=== PATIENT | male | born 1960 | race African-American/Black ===

== ENCOUNTER 2016-08-11 08:00 | Emergency (ER) | payer OTHER ==
[~2016-08-11] VITALS: Ht 185.4 cm; Wt 63.5 kg
[~2016-08-11 08:00] MED LIST: ALBU1AER INH; AMLO10 PO; BYST10TA2 PO; CHOL1CAP6 PO; MEDR4PAK PO; MORP1CAP63 PO; ROBA750T PO
[2016-08-11 08:02] VITALS: BP 189/86; PULSE 78; RESP 20; TEMP 97.9; O2SAT 99
[2016-08-11 09:04] LABS: BASOPHIL # 0.1 TH/MM3 (0-0.2); BASOPHIL % 0.9 % (0.0-2.0); EOSINOPHIL # 0.1 TH/MM3 (0-0.4); EOSINOPHIL % 0.9 % (0.0-4.0); HEMATOCRIT 37.1 % (39.0-51.0); HEMO FLAGS DIFF FINAL; LYMPH % 25.4 % (9.0-44.0); LYMPHOCYTE # 1.5 TH/MM3 (1.0-4.8); MEAN CELL VOLUME 93.8 FL (80.0-100.0); MEAN CORPUSCULAR HEMOGLOBIN 31.2 PG (27.0-34.0); MEAN CORPUSCULAR HGB CONC 33.2 % (32.0-36.0); MONO % 6.6 % (0.0-8.0); NEUT % 66.2 % (16.0-70.0); PLATELET COUNT 159 TH/MM3 (150-450); RED BLOOD COUNT 3.95 MIL/MM3 (4.50-5.90); RED CELL DISTRIBUTION WIDTH 14.1 % (11.6-17.2)
[2016-08-11 09:14] VITALS: BP 177/79; PULSE 74; RESP 18; O2SAT 100
[2016-08-11] MEDS ORDERED: AMLO10TA2 PO (09:14)
[2016-08-11] MEDS ORDERED: ALBU0.63 NEB (09:14)
[2016-08-11] MEDS ORDERED: ALBUAER3 INH (09:14)
[2016-08-11] MEDS ORDERED: CHOL100025 CHEW (09:14)
[2016-08-11] MEDS ORDERED: BYST10TA2 PO (09:14)
[2016-08-11 09:19] LABS: BICARBONATE 23.9 MEQ/L (21.0-32.0); POTASSIUM 4.7 MEQ/L (3.5-5.1)
[2016-08-11] MEDS ORDERED: ASPIRIN 81 MG CHEW TAB PO ONE (09:30)
[2016-08-11] MEDS ORDERED: NITROGLYCERIN 2% OINT 1 GM PACKET TOP ONE (09:45)
--- NOTE | 2016-08-11 09:47 | PD ---
HPI Chief Complaint: Respiratory Distress Time Seen by Provider: 09:15 Travel History International Travel<30 days: No Contact w/Intl Traveler<30days: No Traveled to known affect area: No History of Present Illness HPI Patient is a 56-year-old male with chief complaint of a sided chest pressure. He states present for 3 days. It is constant. When he takes a deep breath or coughs it is sharp and does radiate to the left shoulder blade. He has history of COPD and pneumonia and thinks he is having an exacerbation and possibly pneumonia. He denies any acute worsening of his cough or any sputum production. He denies any acute dyspnea at rest but states when he exerts he does have some mild worsening dyspnea. He has used inhalers with no relief. He denies any fever or ENT/URI symptoms.The pain is not ripping or tearing in nature and he denies dizziness/syncope. He denies history of DVT, recent illnesses travel, recent surgery or immobility. He continues to smoke. Does not take aspirin or anticoagulants. He states he had a cardiac stress test at [facility] 2 months prior which was normal. [facility] Past Medical History Asthma: Yes Cancer: No Cardiovascular Problems: Yes (HTN, CHEST PAIN ) COPD: Yes Coronary Artery Disease: Yes Diminished Hearing: No Genitourinary: Yes (POLYCYSTIC KIDNEY DISEASE) Hepatitis: No Hiatal Hernia: No Herniated Disk: Yes Hypertension: Yes Medical other: No (DJD NECK AND LOWER BACK) Musculoskeletal: Yes (HERNIATED DISCS NECK & BACK) Respiratory: Yes (COPD) Immunizations Current: Yes Renal Failure: Yes Past Surgical History Thoracic Surgery: Yes (SPONTANEOUS PNEUMOTHORAX AFTER WEIGHT LIFTING 2002, LEFT LUNG CHEST TUBE) Other Surgery: Yes (PNEUMOTHORAX/ LUNG BIOPSY) Social History Alcohol Use: Yes ("RARE") Tobacco Use: Yes (3 CIGARS DAILY) Substance Use: No Allergies-Medications (Allergen,Severity, Reaction): Coded Allergies: Contrast Media (Unverified Allergy, Severe, 08/11/16) R/T KIDNEY DISEASE Darvocet-N 100 (Verified Allergy, Severe, 08/11/16) "SICK TO STOMACH AND ABD CRAMPING" Lisinopril (Verified Allergy, Severe, TONGUE SWELLING, 08/11/16) Bactrim (Verified Allergy, Intermediate, 08/11/16) Reported Meds & Prescriptions Reported Meds & Active Scripts Active Azithromycin 250 Mg Tab 250 Mg PO DIRECTED Take 2 tabs (500 mg) on day 1 then 1 tab daily x 4 days. Reported Albuterol Neb (Albuterol Sulfate) 0.63 Mg/3 Ml Neb 0.63 Mg NEB QID NEB PRN Vitamin D3 (Cholecalciferol) 1,000 Unit Chew 1,000 Units CHEW DAILY Bystolic (Nebivolol) 10 Mg Tab 10 Mg PO DAILY Amlodipine (Amlodipine Besylate) 10 Mg Tab 10 Mg PO DAILY Proair Hfa 8.5 GM Inh (Albuterol Sulfate) 90 Mcg/Act Aer 1 Puff INH BID PRN 108 mcg/actuation Review of Systems Except as stated in HPI: all other systems reviewed are Neg Physical Exam Narrative GENERAL: Well-developed and well-nourished adult male in no acute distress. SKIN: Warm and dry. Good turgor without tenting. HEAD: Normocephalic and atraumatic. EYES: PERRL bilaterally, 5mm. EOMI bilaterally. No injection or icterus present. No proptosis. Lids without edema or erythema. ENT: Buccal mucosa pink and moist. Oropharynx free of erythema, tonsillar hypertrophy, masses, swelling, asymmetry and exudates. Uvula midline and airway patent. NECK: Supple, no midline tenderness, crepitus or step-offs. Trachea midline, no JVD. No cervical or facial lymphadenopathy. CARDIOVASCULAR: Regular rate and rhythm without murmurs, rubs, clicks or gallops. Radial and posterior tibial pulses 2+ bilaterally. No pedal edema. Negative bilateral Homans sign. RESPIRATORY: Clear to auscultation bilaterally with symmetrical rise and fall, no distress or use of accessory muscles. GASTROINTESTINAL: Non-tender, non-distended. Normal bowel sounds all 4 quadrants. No masses or organomegaly present. MUSCULOSKELETAL: Patient freely moving all four extremities spontaneously. Extremities without clubbing, cyanosis, or edema. No obvious deformities. NEUROLOGIC: CN II-XII grossly intact. Awake and alert. Motor grossly within normal limits. Normal speech. PSYCHIATRIC: Appropriate mood and affect; insight and judgment normal. Data Data Last Documented VS Vital Signs Date Time Temp Pulse Resp B/P Pulse Ox O2 Delivery O2 Flow Rate FiO2 08/11/16 09:14 100 Room Air 08/11/16 09:14 74 18 177/79 08/11/16 08:02 97.9 Orders Complete Blood Count With Diff (08/11/16 08:23) Basic Metabolic Panel (Bmp) (08/11/16 08:23) Chest, Pa & Lat (08/11/16 08:23) Blood Culture (08/11/16 08:23) Iv Access Insert/Monitor (08/11/16 08:23) Ecg Monitoring (08/11/16 08:23) Oxygen Administration (08/11/16 08:23) Oximetry (08/11/16 08:23) Electrocardiogram (08/11/16 08:23) Ckmb (Isoenzyme) Profile (08/11/16 09:24) Magnesium (Mg) (08/11/16 09:24) Prothrombin Time / Inr (Pt) (08/11/16 09:24) Act Partial Throm Time (Ptt) (08/11/16 09:24) Troponin I (08/11/16 09:24) Bilateral Bp Monitoring (08/11/16 09:24) Aspirin Chew (Aspirin Chew) (08/11/16 09:30) Nitroglycerin 2% Oint (Nitroglycerin 2% (08/11/16 09:45) Ct Thorax/ Chest Wo Iv Contras (08/11/16 ) Ceftriaxone Inj (Rocephin Inj) (08/11/16 10:30) Azithromycin Inj (Zithromax Inj) (08/11/16 10:30) CKMB (08/11/16 08:44) CKMB% (08/11/16 08:44) Labs Laboratory Tests Test 08/11/16 08/11/16 08:44 09:23 White Blood Count 6.0 TH/MM3 Red Blood Count 3.95 MIL/MM3 Hemoglobin 12.3 GM/DL Hematocrit 37.1 % Mean Corpuscular Volume 93.8 FL Mean Corpuscular Hemoglobin 31.2 PG Mean Corpuscular Hemoglobin 33.2 % Concent Red Cell Distribution Width 14.1 % Platelet Count 159 TH/MM3 Mean Platelet Volume 7.0 FL Neutrophils (%) (Auto) 66.2 % Lymphocytes (%) (Auto) 25.4 % Monocytes (%) (Auto) 6.6 % Eosinophils (%) (Auto) 0.9 % Basophils (%) (Auto) 0.9 % Neutrophils # (Auto) 4.0 TH/MM3 Lymphocytes # (Auto) 1.5 TH/MM3 Monocytes # (Auto) 0.4 TH/MM3 Eosinophils # (Auto) 0.1 TH/MM3 Basophils # (Auto) 0.1 TH/MM3 CBC Comment DIFF FINAL Differential Comment Sodium Level 145 MEQ/L Potassium Level 4.7 MEQ/L Chloride Level 114 MEQ/L Carbon Dioxide Level 23.9 MEQ/L Anion Gap 7 MEQ/L Blood Urea Nitrogen 25 MG/DL Creatinine 2.91 MG/DL Estimat Glomerular Filtration 27 ML/MIN Rate Random Glucose 91 MG/DL Calcium Level 8.4 MG/DL Magnesium Level 1.9 MG/DL Total Creatine Kinase 130 U/L Creatine Kinase MB 1.4 NG/ML Troponin I 0.06 NG/ML Prothrombin Time 10.0 SEC Prothromb Time International 0.9 RATIO Ratio Activated Partial 28.1 SEC Thromboplast Time MDM Medical Decision Making Medical Screen Exam Complete: Yes Emergency Medical Condition: Yes Interpretation(s) Last [address] 08/11/16 0000 Signed Impressions: Service Date/Time: Thursday, August 11, 2016 10:14 - CONCLUSION: 1. There is an area of masslike consolidation in the anterior aspect of the left upper lobe measuring 5.9 x 3.0 cm. This has slightly decreased in size compared to a previous examination dated 06/01/12. The patient has undergone previous biopsy of this area. 2. There are 3 new lesions within the right lung apex. These are indeterminate in appearance by CT. PET imaging may be of benefit for further assessment and to exclude malignancy. 3. Extensive emphysematous changes throughout the lung apices and upper lobes. 4. Enlargement of both kidneys with simple cysts consistent with polycystic kidney disease. Carlos Rayo MD Laboratory Tests Test 08/11/16 08:44 Red Blood Count 3.95 MIL/MM3 Hemoglobin 12.3 GM/DL Hematocrit 37.1 % Chloride Level 114 MEQ/L Blood Urea Nitrogen 25 MG/DL Creatinine 2.91 MG/DL Estimat Glomerular Filtration 27 ML/MIN Rate Calcium Level 8.4 MG/DL Troponin I 0.06 NG/ML EKG: NSR, rate of 64. Left axis deviation. Patient has T wave inversion in leads 23 and aVF and V6. Differential Diagnosis ACS versus pericarditis versus pneumonia versus COPD exacerbation versus PE versus aortic aneurysm Narrative Course Patient is a 56-year-old male with history of COPD presenting with left sided chest discomfort and worsening dyspnea consistent with previous episodes of pneumonia. Present for 3 days. It is not exertional. Cardiac stress test 2 months prior which was normal per the patient. EKG shows inversion of T waves in the inferior lateral leads however which is new compared to last EKG but has been present on previous EKGs as well. She was given aspirin initially 2 mg and 1 inch of nitroglycerin paste. This did not alter his symptoms. Chest x- ray shows some opacities in the left upper lung tran. CT scan shows a large masslike area of consolidation in the left upper lobe. This is present on previous CTs and does appear slightly smaller. There is concern for infiltrate in this area of reviewing Dr. Herbert and the patient's symptoms and history. Also some new nodules in the right apex. The seizures chronic anemia, H&H 12.5/ 37.1. Metabolic panel shows BUN 25, creatinine 2.9 which is also chronic. Calcium 8.4. Patient's troponin is 0.06, CK 130, CK-MB 1.4. Reviewed with Dr. Herbert who believes the troponin is elevated due to the renal function and as the history is not overly concerning for cardiac etiology and the CT shows an area of consolidation around previous mass will treat for pneumonia. Patient was given Ceftriaxone and Azithromycin here. Will d/c with the rest of [facility] and have patient follow up with his addiction therapist tomorrow. I discussed this patient with Dr. Herbert throughout their care. He has also evaluated this patient , helped formulate, and agrees with the assessment and plan.See discharge paperwork for further instructions. The plan was discussed with the patient who acknowledged their understanding and agreement. Reinforced the follow-up with primary care is critically important. Patient instructed on emergent conditions that should prompt return to ED. Diagnosis Primary Impression: Pneumonia Qualified Code: J18.1 - Pneumonia of left upper lobe due to infectious organism Additional Impression: Pulmonary nodule Patient Instructions: Community Acquired Pneumonia (ED), General Instructions Additional Instructions: Take medication as prescribed Drink lots of fluids stable hydrated Continue using your home inhalers as prescribed Follow up with your addiction therapist tomorrow Return to the ED for any acute worsening of symptoms Med/Other Pt SpecificInfo: Prescription(s) given Scripts Azithromycin 250 Mg [id number] Mg PO DIRECTED #6 TAB Take 2 tabs (500 mg) on day 1 then 1 tab daily x 4 days. Prov:Jovany Herbert MD 08/11/16 Disposition: 01 DISCHARGE HOME Condition: Stable Guy Perez III Aug 11, 2016 09:47
[2016-08-11 10:06] LABS: APTT (PATIENT) 28.1 SEC (24.3-30.1); INTERNATIONAL NORMALIZED RATIO 0.9 RATIO
[2016-08-11] MEDS ORDERED: cefTRIAXone INJ 1,000 MG in SODIUM CHLORIDE 0.9% INJ 100 ML IV ONE (10:30)
[2016-08-11] MEDS ORDERED: AZITHROMYCIN INJ 500 MG in SODIUM CHLOR 0.9% 250 ML INJ 250 ML IV ONE (10:30)
--- NOTE | 2016-08-11 10:32 | RADRPT ---
EXAM DATE/TIME: 08/11/2016 10:14 [facility] COMPARISON: CT NEEDLE BIOPSY LUNG, LEFT, June 01, 2012, 8:34. CT ABDOMEN & PELVIS W/O CONTRAST, March, 19:59. INDICATIONS : Left chest pain; evaluate for pneumonia. RADIATION DOSE: 5.1 CTDIvol (mGy) MEDICAL HISTORY : Hypertension. Chronic obstructive pulmonary disease. Polycystic kidney disease. SURGICAL HISTORY : None. ENCOUNTER: Initial ACUITY: 1 day PAIN SCALE: 5/10 LOCATION: Left chest TECHNIQUE: Volumetric scanning of the chest was performed. Using automated exposure control and adjustment of t he mA and/or kV according to patient size, radiation dose was kept as low as reasonably achievable to obtain optimal diagnostic quality images. FINDINGS: Examination of the pulmonary parenchyma demonstrates advanced emphysematous changes. There are large emphysematous bulla throughout both upper lobes. There is relative sparing of the lower lobe. There i s a large area of consolidation with partial cavitation in the lateral margin of the left upper lobe. This appears slightly improved when compared back to a previous dated 06/01/12. The patient has unde rgone previous CT guided biopsy of this area. There are 3 new nodules within the right lung apex. The most superior lesion measures 1.1 x 2.0 CM. Lesion in the posterior aspect of the right upper lobe m easures 1.2 x 0.8 CM the more inferior lesion measures 1.5 x 0.9 cm. The heart is normal in size. There is no significant hilar or mediastinal adenopathy. Imaging through the upper abdomen demonstrates numerous cysts within the kidneys suggesting polycysti c kidney disease. CONCLUSION: 1. There is an area of masslike consolidation in the anterior aspect of the left upper lobe measuring 5.9 x 3.0 cm. This has slightly decreased in size compared to a previous examination dated 06/01/12. The patient has undergone previous biopsy of this area. 2. There are 3 new lesions within the right lung apex. These are indeterminate in appearance by CT. P ET imaging may be of benefit for further assessment and to exclude malignancy. 3. Extensive emphysematous changes throughout the lung apices and upper lobes. 4. Enlargement of both kidneys with simple cysts consistent with polycystic kidney disease. Carlos Rayo MD on August 11, 2016 at 10:25 Board Certified Radiologist. This report was verified electronically.
[2016-08-11 11:14] LABS: CREATINE KINASE 130 U/L (39-308); MAGNESIUM 1.9 MG/DL (1.5-2.5)
--- NOTE | 2016-08-11 11:16 | RADRPT ---
EXAM DATE/TIME: 08/11/2016 08:51 [facility] COMPARISON: CHEST PA & LAT, November 29, 2014, 22:47. INDICATIONS: Short of breath and chest pain. MEDICAL HISTORY: Chronic obstructive pulmonary disease. Spontaneous pnx SURGICAL HISTORY: Chest tube ENCOUNTER: Initial ACUITY: 3 days PAIN SCORE: 8/10 LOCATION: Left anterior and posterior FINDINGS: The lungs are markedly hyperinflated. Minimal air space disease is seen in the right upper lobe and the left perihilar region with blebs evident. There is no pneumothorax. Heart and pulmonary vascula rity are normal. CONCLUSION: Marked hyperinflation. Apical air space disease is seen in the right upper lobe and in the left mid lung. Process in the left mid lung has progressed slightly in the interval. Barrett Rayo MD FACR on August 11, 2016 at 10:52 Board Certified Radiologist. This report was verified electronically.
[2016-08-11 11:26] LABS: CKMB 1.4 NG/ML (0.5-3.6)
[2016-08-11] MEDS ORDERED: AZIT250T3 PO ×2 (11:26→11:49)
--- NOTE | 2016-08-11 12:25 | PD ---
Data Data Last Documented VS Vital Signs Date Time Temp Pulse Resp B/P Pulse Ox O2 Delivery O2 Flow Rate FiO2 08/11/16 09:14 100 Room Air 08/11/16 09:14 74 18 177/79 08/11/16 08:02 97.9 Orders Complete Blood Count With Diff (08/11/16 08:23) Basic Metabolic Panel (Bmp) (08/11/16 08:23) Chest, Pa & Lat (08/11/16 08:23) Blood Culture (08/11/16 08:23) Iv Access Insert/Monitor (08/11/16 08:23) Ecg Monitoring (08/11/16 08:23) Oxygen Administration (08/11/16 08:23) Oximetry (08/11/16 08:23) Electrocardiogram (08/11/16 08:23) Ckmb (Isoenzyme) Profile (08/11/16 09:24) Magnesium (Mg) (08/11/16 09:24) Prothrombin Time / Inr (Pt) (08/11/16 09:24) Act Partial Throm Time (Ptt) (08/11/16 09:24) Troponin I (08/11/16 09:24) Bilateral Bp Monitoring (08/11/16 09:24) Aspirin Chew (Aspirin Chew) (08/11/16 09:30) Nitroglycerin 2% Oint (Nitroglycerin 2% (08/11/16 09:45) Ct Thorax/ Chest Wo Iv Contras (08/11/16 ) Ceftriaxone Inj (Rocephin Inj) (08/11/16 10:30) Azithromycin Inj (Zithromax Inj) (08/11/16 10:30) CKMB (08/11/16 08:44) CKMB% (08/11/16 08:44) Labs Laboratory Tests Test 08/11/16 08/11/16 08:44 09:23 White Blood Count 6.0 TH/MM3 Red Blood Count 3.95 MIL/MM3 Hemoglobin 12.3 GM/DL Hematocrit 37.1 % Mean Corpuscular Volume 93.8 FL Mean Corpuscular Hemoglobin 31.2 PG Mean Corpuscular Hemoglobin 33.2 % Concent Red Cell Distribution Width 14.1 % Platelet Count 159 TH/MM3 Mean Platelet Volume 7.0 FL Neutrophils (%) (Auto) 66.2 % Lymphocytes (%) (Auto) 25.4 % Monocytes (%) (Auto) 6.6 % Eosinophils (%) (Auto) 0.9 % Basophils (%) (Auto) 0.9 % Neutrophils # (Auto) 4.0 TH/MM3 Lymphocytes # (Auto) 1.5 TH/MM3 Monocytes # (Auto) 0.4 TH/MM3 Eosinophils # (Auto) 0.1 TH/MM3 Basophils # (Auto) 0.1 TH/MM3 CBC Comment DIFF FINAL Differential Comment Sodium Level 145 MEQ/L Potassium Level 4.7 MEQ/L Chloride Level 114 MEQ/L Carbon Dioxide Level 23.9 MEQ/L Anion Gap 7 MEQ/L Blood Urea Nitrogen 25 MG/DL Creatinine 2.91 MG/DL Estimat Glomerular Filtration 27 ML/MIN Rate Random Glucose 91 MG/DL Calcium Level 8.4 MG/DL Magnesium Level 1.9 MG/DL Total Creatine Kinase 130 U/L Creatine Kinase MB 1.4 NG/ML Troponin I 0.06 NG/ML Prothrombin Time 10.0 SEC Prothromb Time International 0.9 RATIO Ratio Activated Partial 28.1 SEC Thromboplast Time MDM Supervised Visit with [facility]: Yes Narrative Course The history, exam, and medical decision-making in the associated mid-level provider note were completed with my assistance. I reviewed and agree with the findings presented. I attest that I had a [id number] encounter with the patient on the same day, and personally performed and documented my assessment and findings in the medical record. *My assessment and Findings: Is a 56-year-old male presents emergency department reporting left-sided chest pain. Patient has extensive medical history including COPD, and previous pneumothoraces. He's had a chest tube on the left side. Evaluation shows abnormal density in the left long. This was evaluated with CT scan which showed masslike consolidation. This is been previously biopsied and showed what appeared to be inflammatory changes. This is clearly on the oral to the long and likely explains the patient's pleuritic chest pain. He could have some abnormal scarring there from his previous chest tube, other may be new infection in that area. Recommend treatment with antibiotics, pain medicines, and follow-up with the primary care physician. I don't think the patient has a coronary syndrome. I don't think that he has PE. Diagnosis Primary Impression: Pneumonia Qualified Code: J18.1 - Pneumonia of left upper lobe due to infectious organism Additional Impression: Pulmonary nodule Patient Instructions: General Instructions, Community Acquired Pneumonia (ED) Departure Forms: Tests/Procedures Additional Instruction: Take medication as prescribed Drink lots of fluids stable hydrated Continue using your home inhalers as prescribed Follow up with your computer networker tomorrow Return to the ED for any acute worsening of symptoms Scripts Azithromycin 250 Mg [id number] Mg PO DAILY #4 TAB To finish the course started here in the ED Prov:Jovany Herbert MD 08/11/16 Disposition: 01 DISCHARGE HOME Condition: Stable Jovany Herbert MD Aug 11, 2016 12:25
--- NOTE | 2016-08-11 18:58 | EKG ---
Date Performed: 08/11/2016 Time Performed: 08:31:46 PTAGE: 56 years EKG: Sinus rhythm LEFT ANTERIOR FASCICULAR BLOCK SEPTAL MYOCARDIAL INFARCTION MODERATE T-WAVE ABNORMALITY, CONSIDER IN FERIOR ISCHEMIA When compared to prior tracing anteroseptal infarct changes continue. ABNORMAL ECG PREVIOUS TRACING : 12/29/2015 02.33 DOCTOR: Karina Mancia Interpretating Date/Time 08/11/2016 18:57:52
== END 2016-08-11 13:24 | disposition home or self-care (01) ==
LOC: NEPA 08:00
DX: J18.1 Lobar pneumonia, unspecified organism (principal); J44.9 Chronic obstructive pulmonary disease, unspecified; I10 Essential (primary) hypertension; J45.909 Unspecified asthma, uncomplicated; I25.10 Atherosclerotic heart disease of native coronary artery without angina pectoris; F17.290 Nicotine dependence, other tobacco product, uncomplicated; R91.1 Solitary pulmonary nodule
CPT/HCPCS: 71020; 71250; 80048; 82550; 82552; 83735; 84484; 85025; 85610; 85730; 87040; 93005; 96365; 96375; 99284; J0456; J0696; J7050

== ENCOUNTER 2017-01-04 10:40 | Emergency (ER) | payer OTHER ==
[~2017-01-04] VITALS: Ht 185.4 cm; Wt 62.0 kg
[~2017-01-04 10:40] MED LIST changes: +ALBU0.63 NEB; -ALBU1AER INH; +ALBUAER3 INH; -AMLO10 PO; +AMLO10TA2 PO; +AZIT250T3 PO; +CHOL100025 CHEW; -CHOL1CAP6 PO; -MEDR4PAK PO; -MORP1CAP63 PO; -ROBA750T PO
[2017-01-04 10:41] VITALS: BP 223/100; PULSE 76; RESP 24; TEMP 98; O2SAT 99
[2017-01-04 10:55] VITALS: TEMP 97.9
[2017-01-04] MEDS ORDERED: SODIUM CHLOR 0.9% 1000 ML INJ 1,000 ML IV ONE (10:57)
[2017-01-04] MEDS ORDERED: SODIUM CHLORIDE 0.9% FLUSH 10 ML FLUSH IVF PRN (11:00)
[2017-01-04] MEDS ORDERED: diphenhydrAMINE HCL 50 MG/ML VIAL IV PUSH ONE (11:00)
[2017-01-04] MEDS ORDERED: PROCHLORPERAZINE INJ 10 MG/2 ML VIAL IV PUSH ONE (11:00)
--- NOTE | 2017-01-04 11:03 | PD ---
HPI . Vomiting and diarrhea Chief Complaint: Fever Time Seen by Provider: 10:52 Travel History International Travel<30 days: No Contact w/Intl Traveler<30days: No Traveled to known affect area: No History of Present Illness HPI Patient presents with the acute onset of subjective fever associated with vomiting and diarrhea. Symptoms started during the night last night. He states that he had approximately 2 episodes of emesis during the night and has had 3 more this morning. He has had 3 loose stools. Anxious that his symptoms are all on by taking an unknown antibiotic. He states that he was worried that he was developing bronchitis and called his sister to see if she had any antibiotics on hand. She brought him a couple and he took them. His vomiting and diarrhea started after this. He has no idea what antibiotic he took. He actually denies any acute lung problems. He states he has an underlying history of COPD but that his breathing is at its baseline and he does not have any significant coughing and no sputum production. PFSH Past Medical History Asthma: Yes Cancer: No Cardiovascular Problems: Yes (HTN, CHEST PAIN ) COPD: Yes Coronary Artery Disease: Yes Diminished Hearing: No Genitourinary: Yes (POLYCYSTIC KIDNEY DISEASE) Hepatitis: No Hiatal Hernia: No Herniated Disk: Yes Hypertension: Yes Musculoskeletal: Yes (HERNIATED DISCS NECK & BACK) Respiratory: Yes (COPD) Immunizations Current: Yes Renal Failure: Yes Past Surgical History Thoracic Surgery: Yes (SPONTANEOUS PNEUMOTHORAX AFTER WEIGHT LIFTING 2002, LEFT LUNG CHEST TUBE) Other Surgery: Yes (PNEUMOTHORAX/ LUNG BIOPSY) Social History Alcohol Use: Yes ("RARE") Tobacco Use: Yes (3 CIGARS DAILY) Substance Use: No Allergies-Medications (Allergen,Severity, Reaction): Coded Allergies: Contrast Media (Unverified Allergy, Severe, 08/11/16) R/T KIDNEY DISEASE Darvocet-N 100 (Verified Allergy, Severe, 08/11/16) "SICK TO STOMACH AND ABD CRAMPING" Lisinopril (Verified Allergy, Severe, TONGUE SWELLING, 08/11/16) Bactrim (Verified Allergy, Intermediate, 08/11/16) Reported Meds & Prescriptions Reported Meds & Active Scripts Active Azithromycin 250 Mg Tab 250 Mg PO DAILY To finish the course started here in the ED Reported Albuterol Neb (Albuterol Sulfate) 0.63 Mg/3 Ml Neb 0.63 Mg NEB QID NEB PRN Vitamin D3 (Cholecalciferol) 1,000 Unit Chew 1,000 Units CHEW DAILY Bystolic (Nebivolol) 10 Mg Tab 10 Mg PO DAILY Amlodipine (Amlodipine Besylate) 10 Mg Tab 10 Mg PO DAILY Proair Hfa 8.5 GM Inh (Albuterol Sulfate) 90 Mcg/Act Aer 1 Puff INH BID PRN 108 mcg/actuation Review of Systems Except as stated in HPI: all other systems reviewed are Neg General / Constitutional: Positive: Fever, Chills Respiratory: Positive: Shortness of Breath, No: Cough (chronic) Gastrointestinal: Positive: Nausea, Vomiting, Diarrhea Genitourinary: No: Urgency, Frequency, Dysuria Physical Exam Narrative GENERAL: Patient is awake and alert in no acute distress. SKIN: Warm and dry. HEAD: Atraumatic. Normocephalic. EYES: Pupils equal and round. Sclera muddy. ENT: No nasal bleeding or discharge. Mucous membranes pink and moist. NECK: Trachea midline. Neck is supple. CARDIOVASCULAR: Regular rate and rhythm. RESPIRATORY: No accessory muscle use. Lungs sound clear with good air movement throughout. GASTROINTESTINAL: Abdomen soft, non-tender, nondistended. MUSCULOSKELETAL: No obvious deformities. No edema. NEUROLOGICAL: Awake and alert. No obvious cranial nerve deficits. Motor grossly within normal limits. Normal speech. PSYCHIATRIC: Appropriate mood and affect; insight and judgment normal. Data Data Last Documented VS Vital Signs Date Time Temp Pulse Resp B/P Pulse Ox O2 Delivery O2 Flow Rate FiO2 01/04/17 10:55 97.9 01/04/17 10:55 16 98 Room Air 01/04/17 10:41 76 223/100 Orders Iv Access Insert/Monitor (01/04/17 10:57) Sodium Chlor 0.9% 1000 Ml Inj (Ns 1000 M (01/04/17 10:57) Sodium Chloride 0.9% Flush (Ns Flush) (01/04/17 11:00) Diphenhydramine Inj (Benadryl Inj) (01/04/17 11:00) Prochlorperazine Inj (Compazine Inj) (01/04/17 11:00) MDM Medical Decision Making Medical Screen Exam Complete: Yes Emergency Medical Condition: Yes Differential Diagnosis Differential diagnosis includes but is not limited to viral gastritis, food poisoning, pancreatitis, pneumonia, hepatitis, acute coronary syndrome, Narrative Course Patient presents with vomiting and diarrhea. He will be treated with IV fluids Compazine and IV Benadryl. The history, exam, diagnostic testing, and current condition do not suggest any significant pathology to warrant further testing, continued ED treatment, admission, or surgical evaluation at this point. The patient's condition is stable and appropriate for discharge. Diagnosis Primary Impression: Gastroenteritis Patient Instructions: Gastroenteritis (DC), General Instructions Med/Other Pt SpecificInfo: Prescription(s) given Scripts Ondansetron (Zofran)4 Mg Tab4 Mg PO Q6HR PRN (NAUSEA OR VOMITING) #6 TAB Ref 0 Prov:Ruth Ryan MD 01/04/17 Disposition: 01 DISCHARGE HOME Condition: Stable Ruth Ryan MD Jan 04, 2017 11:03
[2017-01-04] MEDS ORDERED: ZOFR4TAB PO (11:45)
== END 2017-01-04 12:13 | disposition home or self-care (01) ==
LOC: NEPD 10:40
DX: K52.9 Noninfective gastroenteritis and colitis, unspecified (principal); R06.02 Shortness of breath; J44.9 Chronic obstructive pulmonary disease, unspecified; J45.909 Unspecified asthma, uncomplicated; I10 Essential (primary) hypertension; I25.10 Atherosclerotic heart disease of native coronary artery without angina pectoris; Q61.3 Polycystic kidney, unspecified; F17.290 Nicotine dependence, other tobacco product, uncomplicated; Z79.51 Long term (current) use of inhaled steroids
CPT/HCPCS: 96361; 96374; 96375; 99284; J0780; J1200; J7030

== ENCOUNTER 2017-01-30 01:55 | Emergency (ER) | payer OTHER ==
[~2017-01-30] VITALS: Ht 180.3 cm; Wt 62.0 kg
[~2017-01-30 01:55] MED LIST changes: +ZOFR4TAB PO
[2017-01-30 01:57] VITALS: BP 184/82; PULSE 73; RESP 16; TEMP 98.6; O2SAT 100
--- NOTE | 2017-02-05 06:46 | MH ---
cc: WHITNEY MENZEES RIZALINA M.D. DATE OF ADMISSION 01/30/2017 CHIEF COMPLAINT The patient will come for CT-guided right upper lobe lung biopsy. HISTORY OF PRESENT ILLNESS Mr. Juan is a 56-year-old -German male with s history of COPD, polycystic kidney disease, nicotine use, and a history of chronic kidney disease stage V. He had a recent PET scan done on January 16 which shows he has left upper lobe airspace consolidation. He also has a 1.6 cm right apical mass which is larger since 2015 suspicious for underlying malignancy. His SUV is 6.4. He also has significant underlying emphysema. He has no cough or sputum production. No fever or chills. No hemoptysis. PAST MEDICAL HISTORY 1. History of COPD 2. Hypertension 3. Polycystic kidney disease 4. Chronic kidney disease stage V 5. Chronic pain 6. History of pneumothorax in 2004 MEDICATIONS He is usin. Symbicort 167/4.5 two puffs twice a day 2. Nebulizer treatment four times 3. Amlodipine once a day 4. Oxycodone 7.5 mg four times a day 5. Bystolic once a day 6. Rapaflo once a day ALLERGIES Allergic to LISINOPRIL AND BACTRIM. SOCIAL HISTORY He has a 35-year history of smoking two packs a day which he has cut down to a few cigarettes. No alcohol use. He used cocaine in the past. He is disabled. 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 FAMILY HISTORY He is single and lives alone. He has two children. He has three brothers, one has COPD. He has two sisters. Mother with CHF and diabetes mellitus. Father with cancer of the prostate. REVIEW OF SYSTEMS He has lost weight, complains of shortness of breath. No hemoptysis. No DVT or pulmonary embolism. PHYSICAL EXAM Physical examination reveals a moderately built, well-nourished male not in any acute distress. VITAL SIGNS: Blood pressure 140/62, heart rate 65, respiration 18, weight 145, oxygen saturation 99%. HEENT: Pupils are equal and reactive. Oral mucosa and nasal mucosa normal. NECK: Supple. JVP not raised. CHEST: Equal air entry. He has scattered rhonchi. CARDIOVASCULAR: S1 and S2 normal. ABDOMEN: Benign. EXTREMITIES: No edema. IMPRESSION 1. Right upper lobe nodule which has increased in size and SUV is 6.4 concerning for malignancy. 2. Underlying emphysema. 3. Nicotine use 4. Polycystic disease 5. Chronic kidney disease stage IV 6. Hypertension 7. Aortic insufficiency. He is having workup done by Dr. Cuellar. PLAN I discussed with the patient, his lung nodule is concerning for malignancy. He will need CT-guided biopsy although he is high risk for pneumothorax. I explained to him the procedure and the complications including complication of pneumothorax requiring chest tube, bleeding complication, injury to blood vessels, lungs nerves, arrhythmia, he understands well and wants to proceed with scheduling for biopsy at [facility]. He is seeing Dr. Cuellar and he is having workup done for this aortic insufficiency. Advised him strongly to quit smoking and continue use Symbicort and nebulizer treatment. Follow up in three weeks. MD CASSANDRA Tolbert/JAZMYN /10:34 PM /6:35 AM
== END 2017-01-30 02:34 | disposition left against medical advice (07) ==
LOC: NED 01:55
DX: R06.02 Shortness of breath (principal); Z53.21 Procedure and treatment not carried out due to patient leaving prior to being seen by health care provider
CPT/HCPCS: 99281

== ENCOUNTER 2017-02-18 07:32 | Day surgery (SDC) | payer OTHER, MEDICAID ==
[2017-02-18] VITALS (8 sets, daily range): BP systolic 133–186; BP diastolic 73–93; PULSE 60–84; RESP 16–20; TEMP 97.6–98.2; O2SAT 92–97
[~2017-02-18] VITALS: Ht 185.4 cm; Wt 63.5 kg
[2017-02-18] MEDS ORDERED: LIDOCAINE 1%/EPINEPHrine 1:100,000 SOLN 20 ML VIAL ONE (07:40)
[2017-02-18] MEDS ORDERED: METO50TA11 PO (07:47)
[2017-02-18] MEDS ORDERED: SODIUM CHLORIDE 2 ML FLUSH PRN IV FLUSH (08:00)
[2017-02-18] MEDS ORDERED: SODIUM CHLOR 0.9% 1000 ML IV SCH (08:00)
[2017-02-18] MEDS ORDERED: SODIUM CHLORIDE 2 ML FLUSH BID IV FLUSH SCH (09:00)
[2017-02-18] MEDS ORDERED: MIDAZOLAM HCL 2 MG/2 ML VIAL ONE (09:12)
[2017-02-18] MEDS ORDERED: fentaNYL CITRATE 250 MCG/5 ML AMP ONE (09:12)
--- NOTE | 2017-02-18 09:58 | PD.RAD ---
Post CT Procedure Prog Note Pre Procedure Diagnosis: (1) Pulmonary nodule Post Procedure Diagnosis: (1) Pulmonary nodule Procedure Date: Feb 18, 2017 Supervising Radiologist: Guy Busch Proceduralist/Assist: Lila Estimated blood loss: none Anesthesia: Conscious Sedation Plan of Activity Patient to Unit: [facility] Patient Condition: Good See PACS Report for procedural detail/treatment Biopsy Side: Right Biopsy Procedure: Lung Site: hypermetabolic right upper lobe lung nodule. Specimen: Core Biopsy Plan to [facility] for monitoring and followup chest x-ray. Then discharge to home if d/c criteria met. Guy Busch MD Feb 18, 2017 09:58
--- NOTE | 2017-02-18 10:58 | RADRPT ---
EXAM DATE/TIME: 02/18/2017 09:22 [facility] COMPARISON: CT ABDOMEN & PELVIS W/O CONTRAST, April 08, 2015, 19:59. CT THORAX W/O CONTRAST, August 11 7, 10:14. INDICATIONS : Right upper lobe lung lesion. SEDATION TIME: 30 minutes BIOPSY SITE: Right lung MEDICATION(S): 1.) 4 mg midazolam (Versed) IV 2.) 250 mcg fentanyl (Sublimaze) IV DEVICE(S): 1.) 18 gauge Healy blunt needle 10cm 2.) 20 gauge Temno core biopsy needle 15cm MEDICAL HISTORY : Chronic obstructive pulmonary disease. Smoker SURGICAL HISTORY : None. ENCOUNTER: Initial ACUITY: 1 day PAIN SCORE: 0/10 LOCATION: Right chest A total of six core specimen(s) were obtained and sent to the laboratory for pathologic evaluation. PROCEDURE: 1. CT guided lung biopsy. 2. Conscious sedation with continuous EKG and oximetry monitoring. Prior to the procedure informed consent was obtained. Prior chest CT and PET/CT were reviewed. Using automated exposure control and adjustment of the mA and/or kV according to patient size, radiation do se was kept as low as reasonably achievable to obtain optimal diagnostic quality images. DICOM forma t image data is available electronically for review and comparison. The site was prepped in a sterile fashion. Full sterile technique was used, including cap, mask, marisol rile gloves and gown and a large sterile sheet. Hand hygiene and 2% chlorhexidine and/or betadine/al cohol prep was utilized per protocol for cutaneous antisepsis. The skin and subcutaneous tissues wer e infiltrated with local anesthetic solution. With CT guidance the right upper lobe pulmonary nodule was localized. Biopsy was performed using the prescribed needle as above. Adequate hemostasis was obtained with compression at the puncture site. Follow-up CT scan reveals no pneumothorax. There is ulmonary hemorrhage. Conscious sedation was performed with the prescribed dosages and duration as above in the presence of an independent trained radiology nurse to assist in the monitoring of the patient. EKG and oximetry remained stable throughout the procedure. The patient tolerated the procedure well and there were no complications. The patient was sent to Radiology Outpatient Unit in stable condition. CONCLUSION: Uncomplicated CT guided biopsy of a right upper lobe lung nodule. Guy Busch MD on February 18, 2017 at 10:55 Board Certified Radiologist. This report was verified electronically.
[2017-02-18] MEDS ORDERED: oxyCODONE/ACETAMINOPHEN 5 MG/325 MG TAB PO PRN (11:00)
--- NOTE | 2017-02-18 11:47 | RADRPT ---
EXAM DATE/TIME: 02/18/2017 10:51 [facility] COMPARISON: CHEST PA & LAT, August 11, 2016, 8:51. INDICATIONS : Status post right lung biopsy. MEDICAL HISTORY : Chronic obstructive pulmonary disease. SURGICAL HISTORY : None. ENCOUNTER: Subsequent ACUITY: 1 day PAIN SCORE: 4/10 LOCATION: Right chest FINDINGS: Upright portable expiratory view of the chest demonstrates airspace consolidation the right upper lob e representing pulmonary hemorrhage. No pneumothorax is visualized. There is stable density in the le ft upper lobe. CONCLUSION: No pneumothorax following recent right lung nodule biopsy. There is a pulmonary hemorrhage in the rig ht upper lobe. Guy Busch MD on February 18, 2017 at 11:44 Board Certified Radiologist. This report was verified electronically.
--- NOTE | 2017-02-18 13:36 | RADRPT ---
EXAM DATE/TIME: 02/18/2017 12:50 [facility] COMPARISON: CT NEEDLE BIOPSY LUNG, RIGHT, February 18, 2017, 9:22. CHEST EXPIRATION ONLY, February 18, 2017, 10:51. INDICATIONS : Post right lung biopsy. MEDICAL HISTORY : Chronic obstructive pulmonary disease. SURGICAL HISTORY : None. ENCOUNTER: Subsequent ACUITY: 1 day PAIN SCORE: 0/10 LOCATION: Bilateral chest FINDINGS: No significant pneumothorax. Redemonstration of a right upper lobe airspace disease consistent with p ostbiopsy blood products. There is moderate biapical bullous change. Cardiac mediastinal contours are stable. Remainder of the exam is unchanged. CONCLUSION: 1. No significant pneumothorax following right upper lobe lung biopsy. 2. Stableusual right upper lobe pulmonary hemorrhage. lCemente Pino MD on February 18, 2017 at 13:32 Board Certified Radiologist. This report was verified electronically.
== END 2017-02-18 13:37 | disposition home or self-care (01) ==
LOC: HRAD 07:32 → HRIP 07:35 → HRAD 13:37
PROVIDERS: ATTEND Specialist
DX: C34.11 Malignant neoplasm of upper lobe, right bronchus or lung (principal); J44.9 Chronic obstructive pulmonary disease, unspecified; J45.909 Unspecified asthma, uncomplicated; I10 Essential (primary) hypertension; F17.200 Nicotine dependence, unspecified, uncomplicated; Z01.818 Encounter for other preprocedural examination
CPT/HCPCS: 32405; 71010; 77012; 87015; 87070; 87102; 87116; 87205; 87206; 88305; 88341; 88342; J2250; J3010; J7030

== ENCOUNTER 2017-02-27 05:57 | Emergency (ER) | payer OTHER, MEDICAID ==
[~2017-02-27] VITALS: Ht 182.9 cm; Wt 77.0 kg
[~2017-02-27 05:57] MED LIST changes: -AZIT250T3 PO; -BYST10TA2 PO; +METO50TA11 PO
[2017-02-27 05:59] VITALS: BP 199/88; PULSE 79; RESP 16; TEMP 97.8; O2SAT 100
--- NOTE | 2017-02-27 06:35 | PD ---
HPI Chief Complaint: Flank/Kidney Pain Time Seen by Provider: 06:22 Travel History International Travel<30 days: No Contact w/Intl Traveler<30days: No Traveled to known affect area: No History of Present Illness HPI Patient is a 56-year-old male who comes in complaining of left flank pain that started last night. He says the pain has been constant. He says he has history of polycystic kidney disease and is prone to infection. He denies nausea or vomiting. He denies fever or chills. He has not taken anything for pain at home. He says he has a foul odor to his urine. PFSH Past Medical History Asthma: Yes Cancer: Yes (lung new diagnosis 2016 ) Cardiovascular Problems: Yes (HTN, CHEST PAIN ) COPD: Yes Coronary Artery Disease: Yes Diminished Hearing: No Genitourinary: Yes (POLYCYSTIC KIDNEY DISEASE) Hepatitis: No Hiatal Hernia: No Herniated Disk: Yes Hypertension: Yes Musculoskeletal: Yes (HERNIATED DISCS NECK & BACK) Respiratory: Yes (COPD) Immunizations Current: Yes Renal Failure: Yes Past Surgical History Thoracic Surgery: Yes (SPONTANEOUS PNEUMOTHORAX AFTER WEIGHT LIFTING 2002, LEFT LUNG CHEST TUBE) Other Surgery: Yes (PNEUMOTHORAX/ left LUNG BIOPSY) Social History Alcohol Use: Yes ("RARE") Tobacco Use: Yes (3 CIGARS DAILY) Substance Use: No Allergies-Medications (Allergen,Severity, Reaction): Coded Allergies: Contrast Media (Unverified Allergy, Severe, 02/27/17) R/T KIDNEY DISEASE Darvocet-N 100 (Verified Allergy, Severe, 02/27/17) "SICK TO STOMACH AND ABD CRAMPING" Lisinopril (Verified Allergy, Severe, TONGUE SWELLING, 02/27/17) Bactrim (Verified Allergy, Intermediate, 02/27/17) Reported Meds & Prescriptions Reported Meds & Active Scripts Active Reported Metoprolol Succinate ER 24 HR (Metoprolol Succinate) 50 Mg Tab 50 Mg PO DAILY Albuterol Neb (Albuterol Sulfate) 0.63 Mg/3 Ml Neb 0.63 Mg NEB QID NEB PRN Vitamin D3 (Cholecalciferol) 1,000 Unit Chew 1,000 Units CHEW DAILY Amlodipine (Amlodipine Besylate) 10 Mg Tab 10 Mg PO DAILY Proair Hfa 8.5 GM Inh (Albuterol Sulfate) 90 Mcg/Act Aer 1 Puff INH BID PRN 108 mcg/actuation Review of Systems Except as stated in HPI: all other systems reviewed are Neg General / Constitutional: No: Fever, Chills HENT: No: Headaches, Lightheadedness Cardiovascular: No: Chest Pain or Discomfort Respiratory: No: Shortness of Breath Gastrointestinal: No: Nausea, Vomiting, Abdominal Pain Genitourinary: Positive: Flank Pain, No: Dysuria Skin: No Rash, No Change in Pigmentation Neurologic: No: Weakness, Dizziness Physical Exam Narrative GENERAL: Awake and alert, in no acute distress. SKIN: Focused skin assessment warm/dry. HEAD: Atraumatic. Normocephalic. EYES: Pupils equal and round. No scleral icterus. ENT: Mucous membranes pink and moist. NECK: Trachea midline. No JVD. CARDIOVASCULAR: Regular rate and rhythm. No murmur appreciated. RESPIRATORY: No accessory muscle use. Clear to auscultation. Breath sounds equal bilaterally. GASTROINTESTINAL: Abdomen soft, non-tender, nondistended. No CVA tenderness. MUSCULOSKELETAL: No obvious deformities. No clubbing. No cyanosis. No edema. NEUROLOGICAL: Awake and alert. No obvious cranial nerve deficits. Motor grossly within normal limits. Normal speech. PSYCHIATRIC: Appropriate mood and affect; insight and judgment normal. Data Data Last Documented VS Vital Signs Date Time Temp Pulse Resp B/P Pulse Ox O2 Delivery O2 Flow Rate FiO2 02/27/17 05:59 97.8 79 16 199/88 100 Room Air Orders Iv Access Insert/Monitor (02/27/17 06:32) Complete Blood Count With Diff (02/27/17 06:32) Basic Metabolic Panel (Bmp) (02/27/17 06:32) Urinalysis - C+S If Indicated (02/27/17 06:32) Ct Abd/Pel W/O Iv Contrast (02/27/17 ) Ns (Bolus) Inj (02/27/17 06:45) Morphine Inj (Morphine Inj) (02/27/17 06:45) Ondansetron Inj (Zofran Inj) (02/27/17 06:45) MDM Medical Decision Making Medical Screen Exam Complete: Yes Emergency Medical Condition: Yes Medical Record Reviewed: Yes Differential Diagnosis UTI versus pyelonephritis versus renal stone Narrative Course Patient is a 56-year-old male who comes in complaining of left flank pain. Exam shows no acute abnormalities. IV established, labs sent. Patient given IV fluids, morphine, Zofran. CT of the abdomen and pelvis ordered. Patient signed out to Dr. Vizcarra to follow up testing and disposition the patient. Condition: Stable Tamika Moran MD Feb 27, 2017 06:35
[2017-02-27] MEDS ORDERED: ONDANSETRON HCL 4 MG/2 ML VIAL IV PUSH ONE (06:45)
[2017-02-27] MEDS ORDERED: SODIUM CHLOR 0.9% 1000 ML INJ 1,000 ML IV ONE (06:45)
[2017-02-27] MEDS ORDERED: MORPHINE SULFATE 4 MG/ML INJ IV PUSH ONE (06:45)
[2017-02-27 06:46] LABS: AUTOMATED NEUTROPHIL # 4.9 TH/MM3 (1.8-7.7); BASOPHIL % 0.7 % (0.0-2.0); EOSINOPHIL # 0.1 TH/MM3 (0-0.4); HEMATOCRIT 35.8 % (39.0-51.0); HEMO FLAGS DIFF FINAL; LYMPH % 19.2 % (9.0-44.0); LYMPHOCYTE # 1.3 TH/MM3 (1.0-4.8); MEAN CELL VOLUME 94.5 FL (80.0-100.0); MEAN CORPUSCULAR HEMOGLOBIN 30.8 PG (27.0-34.0); MEAN CORPUSCULAR HGB CONC 32.6 % (32.0-36.0); MONO % 6.5 % (0.0-8.0); NEUT % 72.6 % (16.0-70.0); PLATELET COUNT 172 TH/MM3 (150-450); RED BLOOD COUNT 3.79 MIL/MM3 (4.50-5.90); WHITE BLOOD COUNT 6.8 TH/MM3 (4.0-11.0)
--- NOTE | 2017-02-27 07:02 | RADRPT ---
EXAM DATE/TIME: 02/27/2017 06:38 [facility] COMPARISON: CT ABDOMEN & PELVIS W/O CONTRAST, April 08, 2015, 19:59. CT THORAX W/O CONTRAST, August 11 7, 10:14. INDICATIONS : Left flank pain and nausea. ORAL CONTRAST: No oral contrast ingested. RADIATION DOSE: 7.04 CTDIvol (mGy) ; Patient positioning MEDICAL HISTORY : Chronic obstructive pulmonary disease. Hypertension. Polycystic kidney disease. SURGICAL HISTORY : None. ENCOUNTER: Initial ACUITY: 1 day PAIN SCALE: 5/10 LOCATION: Left flank TECHNIQUE: Volumetric scanning of the abdomen and pelvis was performed. Using automated exposure control and ad justment of the mA and/or kV according to patient size, radiation dose was kept as low as reasonably achievable to obtain optimal diagnostic quality images. DICOM format image data is available electro nically for review and comparison. FINDINGS: Enlarged kidneys with innumerable variable sized cysts again noted. The enlarged kidneys contribute t o some displacement of adjacent structures including the bowel loops. Accounting for this, I believe there is bulky aortocaval lymphadenopathy estimated at 7.5 x 9.1 cm in greatest transaxial dimension. Numerous calcifications seen scattered throughout the remaining renal parenchyma. I don't see that an y of these are clearly in the collecting systems. There is mild prominence of the proximal left urete r but this is similar to before. No stones are seen. Noncontrast appearance of the liver, spleen, christian creas and adrenal glands within normal limits. No obstruction or acute inflammatory changes seen of t he gastrointestinal tract. There is no free fluid. CONCLUSION: Study limited by lack of contrast and enlarged kidneys related to polycystic kidney disease. I don't see a definite acute abnormality of either kidney but the study does suggest nonspecific bulky retrop eritoneal lymphadenopathy. Abdomen ultrasound or MRI without contrast may be helpful when confirming and further evaluating. Guy Leone MD on February 27, 2017 at 6:53 Board Certified Radiologist. This report was verified electronically.
[2017-02-27 07:11] LABS: BLOOD, URINE TRACE (NEG); COMMENT (UR) CULT NOT INDICATED; CULTURE IF INDICATED CULT NOT INDICATED; GLUCOSE,URINE NEG (NEG); KETONE, URINE NEG (NEG); NITRITE,URINE NEG (NEG); PH, URINE 6.5 (5.0-8.5); URINE COLOR LIGHT-YELLOW (YELLW/STRAW)
[2017-02-27 07:22] LABS: BICARBONATE 24.6 MEQ/L (21.0-32.0)
[2017-02-27 08:04] VITALS: BP 148/70; PULSE 65; RESP 20; O2SAT 98
--- NOTE | 2017-02-27 08:22 | PD ---
Physical Exam Narrative GENERAL: Well-nourished, well-developed patient. SKIN: Warm and dry. HEAD: Normocephalic and atraumatic. EYES: No injection or drainage. ENT: No nasal drainage noted. NECK: Supple, trachea midline. CARDIOVASCULAR: Regular rate and rhythm RESPIRATORY: No increased effort. No accessory muscle use. GASTROINTESTINAL: Abdomen soft, non-tender, nondistended. NEUROLOGICAL: Awake and alert. Motor and sensory grossly within normal limits. Normal speech. Data Data Last Documented VS Vital Signs Date Time Temp Pulse Resp B/P Pulse Ox O2 Delivery O2 Flow Rate FiO2 02/27/17 08:04 65 20 148/70 98 Room Air 02/27/17 05:59 97.8 Orders Iv Access Insert/Monitor (02/27/17 06:32) Complete Blood Count With Diff (02/27/17 06:32) Basic Metabolic Panel (Bmp) (02/27/17 06:32) Urinalysis - C+S If Indicated (02/27/17 06:32) Ct Abd/Pel W/O Iv Contrast (02/27/17 ) Sodium Chlor 0.9% 1000 Ml Inj (Ns 1000 M (02/27/17 06:45) Morphine Inj (Morphine Inj) (02/27/17 06:45) Ondansetron Inj (Zofran Inj) (02/27/17 06:45) Labs Laboratory Tests Test 02/27/17 06:38 White Blood Count 6.8 TH/MM3 Red Blood Count 3.79 MIL/MM3 Hemoglobin 11.7 GM/DL Hematocrit 35.8 % Mean Corpuscular Volume 94.5 FL Mean Corpuscular Hemoglobin 30.8 PG Mean Corpuscular Hemoglobin 32.6 % Concent Red Cell Distribution Width 14.0 % Platelet Count 172 TH/MM3 Mean Platelet Volume 6.7 FL Neutrophils (%) (Auto) 72.6 % Lymphocytes (%) (Auto) 19.2 % Monocytes (%) (Auto) 6.5 % Eosinophils (%) (Auto) 1.0 % Basophils (%) (Auto) 0.7 % Neutrophils # (Auto) 4.9 TH/MM3 Lymphocytes # (Auto) 1.3 TH/MM3 Monocytes # (Auto) 0.4 TH/MM3 Eosinophils # (Auto) 0.1 TH/MM3 Basophils # (Auto) 0.0 TH/MM3 CBC Comment DIFF FINAL Differential Comment Urine Color LIGHT-YELLOW Urine Turbidity CLEAR Urine pH 6.5 Urine Specific Sheldon 1.009 Urine Protein 30 mg/dL Urine Glucose (UA) NEG mg/dL Urine Ketones NEG mg/dL Urine Occult Blood TRACE Urine Nitrite NEG Urine Bilirubin NEG Urine Urobilinogen LESS THAN 2.0 MG/DL Urine Leukocyte Esterase NEG Urine RBC 4 /hpf Urine WBC 1 /hpf Microscopic Urinalysis Comment CULT NOT INDICATED Sodium Level 139 MEQ/L Potassium Level 5.0 MEQ/L Chloride Level 107 MEQ/L Carbon Dioxide Level 24.6 MEQ/L Anion Gap 7 MEQ/L Blood Urea Nitrogen 40 MG/DL Creatinine 3.58 MG/DL Estimat Glomerular Filtration 22 ML/MIN Rate Random Glucose 172 MG/DL Calcium Level 8.2 MG/DL MDM Supervised Visit with CILTALLI: No Interpretation(s) CBC & BMP Diagram 02/27/17 06:38 Last 24 hours Impressions Abdomen/Pelvis CT 02/27/17 0000 Signed Impressions: Service Date/Time: Monday, February 27, 2017 06:38 - CONCLUSION: Study limited by lack of contrast and enlarged kidneys related to polycystic kidney disease. I don't see a definite acute abnormality of either kidney but the study does suggest nonspecific bulky retroperitoneal lymphadenopathy. Abdomen ultrasound or MRI without contrast may be helpful when confirming and further evaluating. Guy Leone MD UA without significant signs of infection Narrative Course Renal function has increased from prior on file will discuss with his drapery counselor. Patient states he follows with Dr. Martin, patient is feeling better and wanting to go home, updated about CT abdomen results and he has no abdominal pain now and wants to follow this as an outpatient and is working on having an appointment with his oncologist for his new lung cancer diagnosis Patient denies any new complaints and states that they are feeling better. Patient happy with care, all questions answered. Patient knows that follow up is incumbent on them and to return to the emergency room immediately if new or worsening symptoms develop. Patient given strict return precautions, vitals reviewed and are normal, agrees to further workup as an outpatient. Physician Communication Physician Communication dr to states as producing urine and without fever or white count patient can go home and follow in the office Diagnosis Primary Impression: Flank pain Patient Instructions: General Instructions Additional Instruction: return as needed, follow with your kidney doctor thursday and call your oncologist to discuss your ct abdomen results and follow up, tylenol as needed Med/Other Pt SpecificInfo: No Change to Meds Disposition: 01 DISCHARGE HOME Condition: Stable Aislinn Vizcarra MD Feb 27, 2017 08:22
== END 2017-02-27 08:50 | disposition home or self-care (01) ==
LOC: NEPE 05:57
DX: R10.9 Unspecified abdominal pain (principal); Q61.3 Polycystic kidney, unspecified; J45.909 Unspecified asthma, uncomplicated; I10 Essential (primary) hypertension; J44.9 Chronic obstructive pulmonary disease, unspecified; I25.10 Atherosclerotic heart disease of native coronary artery without angina pectoris; F17.290 Nicotine dependence, other tobacco product, uncomplicated; Z79.51 Long term (current) use of inhaled steroids; Z79.899 Other long term (current) drug therapy
CPT/HCPCS: 74176; 80048; 81001; 85025; 96361; 96374; 96375; 99285; J2270; J2405; J7030

== ENCOUNTER 2017-08-18 05:24 | Emergency (ER) | payer OTHER, MEDICAID ==
[~2017-08-18] VITALS: Ht 185.4 cm; Wt 60.0 kg
[~2017-08-18 05:24] MED LIST changes: +METO1TAB9 PO; -METO50TA11 PO; -ZOFR4TAB PO
[2017-08-18 05:29] VITALS: BP 214/92; PULSE 94; RESP 18; TEMP 98
[2017-08-18] MEDS ORDERED: SODIUM CHLORIDE 0.9% FLUSH 10 ML FLUSH IVF PRN (05:45)
--- NOTE | 2017-08-18 05:46 | PD ---
HPI Chief Complaint: Cardiac Complaint Time Seen by Provider: 05:44 Travel History International Travel<30 days: No Contact w/Intl Traveler<30days: No Traveled to known affect area: No History of Present Illness HPI 57 year old male presents to the emergency department for complaint of chest palpitations and shortness of breath. Patient states that he has a history of COPD and has a home nebulizer. Patient states he has no prior history of cardiac disease or irregular heartbeat. Patient's had no recent fever or productive cough. Patient denies hemoptysis. No recent long distance travel protracted bedrest her surgical procedure. Patient has another [facility] oncologist for lung cancer and has completed his entire course of radiation therapy did not require chemotherapy or surgical intervention. Patient has been told that his cancer is in remission. Patient's had no lower extremity pain or swelling. Patient states that his symptoms have improved since arriving to the hospital. Patient did uses nebulized this morning for complaint of shortness of breath. PFSH Past Medical History Narrative Medical Hypertension asthma lung cancer radiation therapy Asthma: Yes Cancer: Yes (lung new diagnosis 2016 ) Cardiovascular Problems: Yes (HTN, CHEST PAIN ) COPD: Yes Coronary Artery Disease: Yes Diminished Hearing: No Genitourinary: Yes (POLYCYSTIC KIDNEY DISEASE) Hepatitis: No Hiatal Hernia: No Herniated Disk: Yes Hypertension: Yes Musculoskeletal: Yes (HERNIATED DISCS NECK & BACK) Respiratory: Yes (COPD) Immunizations Current: Yes Renal Failure: Yes Past Surgical History Thoracic Surgery: Yes (SPONTANEOUS PNEUMOTHORAX AFTER WEIGHT LIFTING 2002, LEFT LUNG CHEST TUBE) Other Surgery: Yes (PNEUMOTHORAX/ left LUNG BIOPSY) Social History Alcohol Use: Yes ("RARE") Tobacco Use: Yes (3 CIGARS DAILY) Substance Use: No Allergies-Medications (Allergen,Severity, Reaction): Coded Allergies: acetaminophen (Unverified Allergy, Severe, 08/18/17) "SICK TO STOMACH AND ABD CRAMPING" diatrizoate meglumine (Unverified Allergy, Severe, 08/18/17) R/T KIDNEY DISEASE gadobenic acid (Unverified Allergy, Severe, 08/18/17) R/T KIDNEY DISEASE gadodiamide (Unverified Allergy, Severe, 08/18/17) R/T KIDNEY DISEASE gadoteridol (Unverified Allergy, Severe, 08/18/17) R/T KIDNEY DISEASE iodixanol (Unverified Allergy, Severe, 08/18/17) R/T KIDNEY DISEASE iohexol (Unverified Allergy, Severe, 08/18/17) R/T KIDNEY DISEASE lisinopril (Unverified Allergy, Severe, TONGUE SWELLING, 08/18/17) propoxyphene (Unverified Allergy, Severe, 08/18/17) "SICK TO STOMACH AND ABD CRAMPING" sulfamethoxazole (Unverified Allergy, Intermediate, 08/18/17) trimethoprim (Unverified Allergy, Intermediate, 08/18/17) Reported Meds & Prescriptions Reported Meds & Active Scripts Active Reported Metoprolol Succinate ER 24 HR (Metoprolol Succinate) 50 Mg Tab 50 Mg PO DAILY Albuterol Neb (Albuterol Sulfate) 0.63 Mg/3 Ml Neb 0.63 Mg NEB QID NEB PRN Vitamin D3 (Cholecalciferol) 1,000 Unit Chew 1,000 Units CHEW DAILY Amlodipine (Amlodipine Besylate) 10 Mg Tab 10 Mg PO DAILY Proair Hfa 8.5 GM Inh (Albuterol Sulfate) 90 Mcg/Act Aer 1 Puff INH BID PRN 108 mcg/actuation Review of Systems Except as stated in HPI: all other systems reviewed are Neg General / Constitutional: No: Fever, Chills HENT: No: Congestion Cardiovascular: Positive: Palpitations, Tachycardia, No: Chest Pain or Discomfort, Diaphoresis, Syncope Respiratory: Positive: Cough, Shortness of Breath, Wheezing Gastrointestinal: No: Abdominal Pain Genitourinary: No: Flank Pain Musculoskeletal: No: Myalgias, Arthralgias Skin: No Rash Neurologic: No: Weakness Psychiatric: No: Anxiety Hematologic/Lymphatic: No: Lymph Node Enlargement Physical Exam Narrative GENERAL: Well-developed well-nourished male in no acute distress no respiratory distress SKIN: Warm and dry. HEAD: Normocephalic. EYES: No scleral icterus. No injection or drainage. NECK: Supple, trachea midline. No JVD or lymphadenopathy. CARDIOVASCULAR: Increased Regular rate and rhythm without murmurs, gallops, or rubs. RESPIRATORY: Breath sounds equal bilaterally. No accessory muscle use. GASTROINTESTINAL: Abdomen soft, non-tender, nondistended. MUSCULOSKELETAL: No cyanosis, or edema. BACK: Nontender without obvious deformity. No CVA tenderness. Data Data Last Documented VS Vital Signs Date Time Temp Pulse Resp B/P (MAP) Pulse Ox O2 Delivery O2 Flow Rate FiO2 08/18/17 05:57 18 100 Room Air 08/18/17 05:55 76 08/18/17 05:29 98.0 Orders Orders Electrocardiogram (08/18/17 05:44) Basic Metabolic Panel (Bmp) (08/18/17 05:44) Ckmb (Isoenzyme) Profile (08/18/17 05:44) Complete Blood Count With Diff (08/18/17 05:44) Magnesium (Mg) (08/18/17 05:44) Prothrombin Time / Inr (Pt) (08/18/17 05:44) Act Partial Throm Time (Ptt) (08/18/17 05:44) Troponin I (08/18/17 05:44) Chest, Single Ap (08/18/17 05:44) Ecg Monitoring (08/18/17 05:44) Bilateral Bp Monitoring (08/18/17 05:44) Iv Access Insert/Monitor (08/18/17 05:44) Oximetry (08/18/17 05:44) Oxygen Administration (08/18/17 05:44) Sodium Chloride 0.9% Flush (Ns Flush) (08/18/17 05:45) CKMB (08/18/17 05:52) CKMB% (08/18/17 05:52) Labs Laboratory Tests Test 08/18/17 05:52 White Blood Count 5.4 TH/MM3 Red Blood Count 3.57 MIL/MM3 Hemoglobin 11.2 GM/DL Hematocrit 33.7 % Mean Corpuscular Volume 94.3 FL Mean Corpuscular Hemoglobin 31.3 PG Mean Corpuscular Hemoglobin Concent 33.2 % Red Cell Distribution Width 14.5 % Platelet Count 134 TH/MM3 Mean Platelet Volume 6.9 FL Neutrophils (%) (Auto) 63.0 % Lymphocytes (%) (Auto) 27.0 % Monocytes (%) (Auto) 7.5 % Eosinophils (%) (Auto) 1.3 % Basophils (%) (Auto) 1.2 % Neutrophils # (Auto) 3.4 TH/MM3 Lymphocytes # (Auto) 1.5 TH/MM3 Monocytes # (Auto) 0.4 TH/MM3 Eosinophils # (Auto) 0.1 TH/MM3 Basophils # (Auto) 0.1 TH/MM3 CBC Comment DIFF FINAL Differential Comment Prothrombin Time 10.4 SEC Prothromb Time International Ratio 1.0 RATIO Activated Partial Thromboplast Time 27.3 SEC Blood Urea Nitrogen 41 MG/DL Creatinine 3.70 MG/DL Random Glucose 100 MG/DL Calcium Level 8.3 MG/DL Magnesium Level 1.9 MG/DL Sodium Level 141 MEQ/L Potassium Level 4.0 MEQ/L Chloride Level 114 MEQ/L Carbon Dioxide Level 20.0 MEQ/L Anion Gap 7 MEQ/L Estimat Glomerular Filtration Rate 21 ML/MIN Total Creatine Kinase 166 U/L Troponin I 0.05 NG/ML MDM Medical Decision Making Medical Screen Exam Complete: Yes Emergency Medical Condition: Yes Medical Record Reviewed: Yes Interpretation(s) EKG sinus rhythm rate ventricular conduction delay LVH QS septally age- indeterminate noted as well 08/11/16 also nonspecific T-wave inversion inferiorly Troponin I 0.05, upper limit of normal; CK 166 not elevated MB pending CBC & BMP Diagram 08/18/17 05:52 Calcium Level 8.3 L, Magnesium Level 1.9 Vital Signs Date Time Temp Pulse Resp B/P (MAP) Pulse Ox O2 Delivery O2 Flow Rate FiO2 08/18/17 05:57 18 100 Room Air 08/18/17 05:55 76 18 100 Room Air 08/18/17 05:29 98.0 94 18 214/92 (132) Room Air Differential Diagnosis Palpitations, arrhythmia, electrolyte disturbance, ACS, TN, COPD exacerbation, pneumonia, PE Narrative Course Patient placed on director cardiac with continuous pulse oximetry IV access obtained EKG performed which shows QS pattern age-indeterminate with single lead subcentimeter ST elevation this is noted previously on EKG 08/11/16 also inferior leads 23 aVF with T-wave inversion; patient denies chest pain shortness of breath has resolved and palpitations have resolved. Patient will be given nitro paste half inch to chest wall aspirin 162 mg by mouth cardiac enzymes pending Patient informed that troponin I 0.05 upper limit of normal concerning for QS and palpitations patient again denies having any chest pain referred neck jaw back shoulder arm pain. Patient states she cannot stay in the hospital is aware that this may reflect that he has had injury to his heart and is aware that the concern would be for heart attack patient states that he has a child at home and that he will return or follow up with his skeins yarn examiner this morning. Patient states he adamantly cannot stay for serial cardiac enzymes or further evaluation. Patient reports he feels back to normal normal and will see his skeins yarn examiner will not say for admission. Discussed in detail risk of leaving AGAINST MEDICAL ADVICE and without completion of his evaluation including serial enzymes with plan to administer aspirin and nitroglycerin intervention in the interim. AMA: The risks of leaving against medical advice without further evaluation treatment were discussed with the patient. These risks include cardiac dysfunction, cardiac dysrhythmia, possible heart attack, possible stroke or . The patient indicated understanding of these risks and appeared to have the capacity to make this decision. Diagnosis Primary Impression: Left against medical advice Additional Impression: Palpitations Disposition: 07 AGAINST MEDICAL ADVICE Condition: Stable Keely Ford MD Aug 18, 2017 05:45
[2017-08-18 05:57] VITALS: RESP 18; O2SAT 100
[2017-08-18 06:03] LABS: AUTOMATED NEUTROPHIL # 3.4 TH/MM3 (1.8-7.7); BASOPHIL # 0.1 TH/MM3 (0-0.2); BASOPHIL % 1.2 % (0.0-2.0); EOSINOPHIL # 0.1 TH/MM3 (0-0.4); EOSINOPHIL % 1.3 % (0.0-4.0); HEMATOCRIT 33.7 % (39.0-51.0); HEMOGLOBIN 11.2 GM/DL (13.0-17.0); LYMPHOCYTE # 1.5 TH/MM3 (1.0-4.8); MEAN CELL VOLUME 94.3 FL (80.0-100.0); MEAN CORPUSCULAR HEMOGLOBIN 31.3 PG (27.0-34.0); MEAN CORPUSCULAR HGB CONC 33.2 % (32.0-36.0); MEAN PLATELET VOLUME 6.9 FL (7.0-11.0); MONO % 7.5 % (0.0-8.0); MONOCYTE # 0.4 TH/MM3 (0-0.9); PLATELET COUNT 134 TH/MM3 (150-450); RED BLOOD COUNT 3.57 MIL/MM3 (4.50-5.90); RED CELL DISTRIBUTION WIDTH 14.5 % (11.6-17.2); WHITE BLOOD COUNT 5.4 TH/MM3 (4.0-11.0)
[2017-08-18 06:17] LABS: PROTHROMBIN TIME - PATIENT 10.4 SEC (9.8-11.6)
[2017-08-18 06:22] LABS: BLOOD UREA NITROGEN 41 MG/DL (7-18); CALCIUM 8.3 MG/DL (8.5-10.1); CHLORIDE 114 MEQ/L (98-107); GLOMERULAR FILTRATION RATE 21 ML/MIN (>89); GLUCOSE,RANDOM 100 MG/DL (74-106); MAGNESIUM 1.9 MG/DL (1.5-2.5); SODIUM (NA) 141 MEQ/L (136-145)
[2017-08-18 06:26] LABS: TROPONIN I 0.05 NG/ML (0.02-0.05)
--- NOTE | 2017-08-18 06:26 | RADRPT ---
EXAM DATE/TIME: 08/18/2017 05:59 [facility] COMPARISON: CHEST EXPIRATION ONLY, February 18, 2017, 12:50. INDICATIONS : Chest pain. MEDICAL HISTORY : Chronic obstructive pulmonary disease. Hypertension. Polycystic kidney disease. SURGICAL HISTORY : ENCOUNTER: Initial ACUITY: 1 day PAIN SCORE: 2/10 LOCATION: Bilateral chest FINDINGS: A single view of the chest demonstrates bullous lesions in both lung apices. Faint nodular density no zenia upper right lung, previously biopsied. No new consolidation or effusion. Heart size normal. CONCLUSION: 1. Stable bullous lesions upper lungs with faint nodule upper right lung previously biopsied in Febus t 2016. Clearing of previous right upper lobe consolidation. Maco Tobar MD on August 18, 2017 at 6:20 Board Certified Radiologist. This report was verified electronically.
[2017-08-18 07:28] VITALS: BP 165/85; PULSE 97; RESP 16
--- NOTE | 2017-08-19 00:31 | EKG ---
Date Performed: 08/18/2017 Time Performed: 05:49:38 PTAGE: 57 years EKG: Sinus rhythm POSSIBLE RIGHT VENTRICULAR CONDUCTION DELAY LEFT ANTERIOR FASCICULAR BLOCK LEFT VENTRICULAR HYPERTRO PHY AND ST-T CHANGE POSSIBLE SEPTAL MYOCARDIAL INFARCTION T WAVE CHANGES INFERIOR MAY BE DUE TO ISCHE BRYCE ABNORMAL ECG PREVIOUS TRACING : 08/11/2016 08.31 Since the prior tracing, there has been no significant zavala DOCTOR: Javad Guerrero Interpretating Date/Time 08/19/2017 00:30:12
== END 2017-08-18 10:05 | disposition left against medical advice (07) ==
LOC: NEPC 05:24
DX: C34.90 Malignant neoplasm of unspecified part of unspecified bronchus or lung (principal); J44.9 Chronic obstructive pulmonary disease, unspecified; I10 Essential (primary) hypertension; F17.290 Nicotine dependence, other tobacco product, uncomplicated; Z79.899 Other long term (current) drug therapy
CPT/HCPCS: 71045; 80048; 82550; 82552; 83735; 84484; 85025; 85610; 85730; 93005; 99285

== ENCOUNTER 2017-11-30 05:34 | Emergency (ER) | payer OTHER, MEDICAID ==
[~2017-11-30] VITALS: Ht 185.4 cm; Wt 65.0 kg
[2017-11-30 05:36] VITALS: BP 180/81; PULSE 87; RESP 22; TEMP 97.7; O2SAT 100
[2017-11-30] MEDS ORDERED: methylPREDNISolone SOD SUCC 125 MG/2 ML VIAL IV PUSH ONE (06:00)
[2017-11-30] MEDS ORDERED: SODIUM CHLORIDE 0.9% FLUSH 10 ML FLUSH IVF PRN (06:00)
[2017-11-30 06:06] VITALS: BP 159/76; PULSE 68; PULSE 77; RESP 20; O2SAT 100
[2017-11-30] MEDS: RESP: ALBUTEROL 2.5 MG/IPRATROPIUM 0.5 MG NEB (SCH) INH (06:11)
--- NOTE | 2017-11-30 06:14 | PD ---
HPI Chief Complaint: Respiratory Symptoms Time Seen by Provider: 05:41 Travel History International Travel<30 days: No Contact w/Intl Traveler<30days: No Traveled to known affect area: No History of Present Illness HPI The patient is a 57 year old male who presents to the [facility] emergency department with a history of cough and congestion that he reports began 3 days ago. The patient reports that his cough has been productive of a likely he reports that he has been short of breath wheezing cough. The patient reports having history of COPD with more frequent use of his nebulizer machine. The patient reports that he is currently under treatment for lung cancer. He has been under treatment with radiation since June 2017. He has received 5 treatments. He denies having any known fevers, however he has had chills. Otherwise on review of systems, he denies having any neck pain, chest pain, abdominal pain, vomiting, diarrhea, urinary symptoms, or neurologic symptoms. FOR[facility]LY [facility] Past Medical History Narrative Medical The patient's past medical history is significant for COPD, hypertension, polycystic kidney disease chronic renal insufficiency, chronic pain, history of pneumothorax in 2004, history of aortic insufficiency. The patient denies having any prior history of DVT or PE. Asthma: Yes Cancer: Yes (lung new diagnosis 2016 ) Cardiovascular Problems: Yes (HTN, CHEST PAIN ) COPD: Yes Coronary Artery Disease: Yes Diabetes: No Diminished Hearing: No Genitourinary: Yes (POLYCYSTIC KIDNEY DISEASE) Hepatitis: No Hiatal Hernia: No Herniated Disk: Yes Hypertension: Yes Musculoskeletal: Yes (HERNIATED DISCS NECK & BACK) Respiratory: Yes (COPD) Immunizations Current: Yes Renal Failure: Yes Tetanus Vaccination: < 5 Years Influenza Vaccination: Yes Past Surgical History Narrative Surgical The patient's past surgical history is significant for chest tube placement. Thoracic Surgery: Yes (SPONTANEOUS PNEUMOTHORAX AFTER WEIGHT LIFTING 2002, LEFT LUNG CHEST TUBE) Other Surgery: Yes (PNEUMOTHORAX/ left LUNG BIOPSY) Social History Alcohol Use: Yes ("RARE") Tobacco Use: Yes (3 CIGARS DAILY) Substance Use: No Allergies-Medications (Allergen,Severity, Reaction): Coded Allergies: acetaminophen (Unverified Allergy, Severe, 11/30/17) "SICK TO STOMACH AND ABD CRAMPING" diatrizoate meglumine (Unverified Allergy, Severe, 11/30/17) R/T KIDNEY DISEASE gadobenic acid (Unverified Allergy, Severe, 11/30/17) R/T KIDNEY DISEASE gadodiamide (Unverified Allergy, Severe, 11/30/17) R/T KIDNEY DISEASE gadoteridol (Unverified Allergy, Severe, 11/30/17) R/T KIDNEY DISEASE iodixanol (Unverified Allergy, Severe, 11/30/17) R/T KIDNEY DISEASE iohexol (Unverified Allergy, Severe, 11/30/17) R/T KIDNEY DISEASE lisinopril (Unverified Allergy, Severe, TONGUE SWELLING, 11/30/17) propoxyphene (Unverified Allergy, Severe, 11/30/17) "SICK TO STOMACH AND ABD CRAMPING" sulfamethoxazole (Unverified Allergy, Intermediate, 11/30/17) trimethoprim (Unverified Allergy, Intermediate, 11/30/17) Reported Meds & Prescriptions Reported Meds & Active Scripts Active Reported Metoprolol Succinate ER 24 HR (Metoprolol Succinate) 50 Mg Tab 50 Mg PO DAILY Albuterol Neb (Albuterol Sulfate) 0.63 Mg/3 Ml Neb 0.63 Mg NEB QID NEB PRN Vitamin D3 (Cholecalciferol) 1,000 Unit Chew 1,000 Units CHEW DAILY Amlodipine (Amlodipine Besylate) 10 Mg Tab 10 Mg PO DAILY Proair Hfa 8.5 GM Inh (Albuterol Sulfate) 90 Mcg/Act Aer 1 Puff INH BID PRN 108 mcg/actuation Review of Systems Except as stated in HPI: all other systems reviewed are Neg General / Constitutional: Positive: Chills, No: Fever Eyes: No: Visual changes HENT: Positive: Congestion, No: Headaches Cardiovascular: Positive: Dyspnea on exertion, No: Chest Pain or Discomfort Respiratory: Positive: Cough, Shortness of Breath, Wheezing Gastrointestinal: No: Nausea, Vomiting, Diarrhea, Abdominal Pain Genitourinary: No: Dysuria Musculoskeletal: No: Pain Skin: No Rash Neurologic: No: Weakness Psychiatric: No: Depression Endocrine: No: Polydipsia Hematologic/Lymphatic: No: Easy Bruising Physical Exam Narrative General: The patient is a well-developed well-nourished male with tachypnea noted. Head and Neck exam: Head is normocephalic atraumatic. Eyes: EOMI, pupils are equal round and reactive to light. Nose: Midline septum with pink mucous membranes Mouth: Dentition unremarkable. Moist mucus membranes. Posterior oropharynx is not erythematous. No tonsillar hypertrophy. Uvula midline. Airway patent. Neck: No palpable lymphadenopathy. No nuchal rigidity. No thyromegaly. Cardiovascular: Regular rate and rhythm without murmurs, gallops, or rubs. No pulse deficit to the extremities on simultaneous auscultation and palpation of his radial artery. Lungs: Decreased breath sounds in bilateral lung bases. No rhonchi or crackles are audible. The patient has soft anterior expiratory wheezes noted. The patient has accessory muscle use noted. Abdomen: Soft, without tenderness to palpation in all 4 quadrants of the abdomen. No guarding, rebound, or rigidity. Normal bowel sounds are audible. No tenderness on palpation of McBurney's point. Negative Mullins sign. Extremities: No clubbing, cyanosis, or edema. 2+ pulses in all 4 extremities. No calf tenderness on palpation. Back: No spinous process tenderness to palpation. No costovertebral angle tenderness to palpation. Neurologic Exam: Grossly nonfocal. Skin Exam: No rash noted. Intact skin that is warm and dry. Data Data Last Documented VS Vital Signs Date Time Temp Pulse Resp B/P (MAP) Pulse Ox O2 Delivery O2 Flow Rate FiO2 11/30/17 06:06 100 Room Air 11/30/17 06:06 68 20 11/30/17 05:36 97.7 Orders Orders Complete Blood Count With Diff (11/30/17 05:53) Comprehensive Metabolic Panel (11/30/17 05:53) B-Type Natriuretic Peptide (11/30/17 05:53) Act Partial Throm Time (Ptt) (11/30/17 05:53) Prothrombin Time / Inr (Pt) (11/30/17 05:53) Magnesium (Mg) (11/30/17 05:53) Ckmb (Isoenzyme) Profile (11/30/17 05:53) Troponin I (11/30/17 05:53) Blood Culture (11/30/17 05:53) Iv Access Insert/Monitor (11/30/17 05:53) Electrocardiogram (11/30/17 05:53) Ecg Monitoring (11/30/17 05:53) Oximetry (11/30/17 05:53) Oxygen Administration (11/30/17 05:53) Chest, Single Ap (11/30/17 05:53) Sodium Chloride 0.9% Flush (Ns Flush) (11/30/17 06:00) Methylprednisolone So Succ Inj (Solumedr (11/30/17 06:00) Albuterol-Ipratropium Neb (Duoneb Neb) (11/30/17 06:00) Ct Thorax/ Chest Wo Iv Contras (11/30/17 06:45) Labs Laboratory Tests Test 11/30/17 05:55 White Blood Count 5.7 TH/MM3 Red Blood Count 3.73 MIL/MM3 Hemoglobin 11.7 GM/DL Hematocrit 34.9 % Mean Corpuscular Volume 93.5 FL Mean Corpuscular Hemoglobin 31.5 PG Mean Corpuscular Hemoglobin Concent 33.7 % Red Cell Distribution Width 14.8 % Platelet Count 157 TH/MM3 Mean Platelet Volume 7.7 FL Neutrophils (%) (Auto) 65.5 % Lymphocytes (%) (Auto) 25.0 % Monocytes (%) (Auto) 6.9 % Eosinophils (%) (Auto) 1.8 % Basophils (%) (Auto) 0.8 % Neutrophils # (Auto) 3.7 TH/MM3 Lymphocytes # (Auto) 1.4 TH/MM3 Monocytes # (Auto) 0.4 TH/MM3 Eosinophils # (Auto) 0.1 TH/MM3 Basophils # (Auto) 0.0 TH/MM3 CBC Comment DIFF FINAL Differential Comment Prothrombin Time 9.7 SEC Prothromb Time International Ratio 1.0 RATIO Activated Partial Thromboplast Time 25.0 SEC Blood Urea Nitrogen 33 MG/DL Creatinine 3.60 MG/DL Random Glucose 94 MG/DL Albumin 3.2 GM/DL Calcium Level 8.1 MG/DL Magnesium Level 2.3 MG/DL Aspartate Amino Transf (AST/SGOT) 15 U/L Alanine Aminotransferase (ALT/SGPT) 12 U/L Sodium Level 145 MEQ/L Potassium Level 4.9 MEQ/L Chloride Level 117 MEQ/L Carbon Dioxide Level 21.3 MEQ/L Anion Gap 7 MEQ/L Estimat Glomerular Filtration Rate 21 ML/MIN MDM Medical Decision Making Medical Screen Exam Complete: Yes Emergency Medical Condition: Yes Medical Record Reviewed: Yes Interpretation(s) Last Impressions Chest X-Ray 11/30/17 0553 Signed Impressions: Service Date/Time: Thursday, November 30, 2017 06:06 - CONCLUSION: 1. Slight increase in parenchymal irregular opacity in the upper left lung since July. Recommend further evaluation with noncontrast chest CT. Stable pleural thickening and parenchymal opacity on the right. Maco Tobar MD Differential Diagnosis COPD exacerbation, versus pneumonia, versus bronchitis, versus pneumothorax, versus pulmonary embolism, versus congestive heart failure Narrative Course During the course of the patient's emergency department visit, the patient's history, examination, and differential diagnosis were reviewed with the patient. The patient was placed on a gambling monitor with oximetry and frequent blood pressure monitoring. The patient had IV access obtained and blood work sent for analysis. The patient was initially provided duo nebs 3, Solu-Medrol 125 mg IV. The patient's laboratory studies were reviewed and remarkable for a white count of 5.7, hemoglobin 11.7, platelets 157 with a normal differential, CMP is remarkable for chloride of 117, BUN 33, creatinine 3.60 which is at the patient' s baseline compared to his prior BUN and creatinine given his history of renal insufficiency, calcium is 8.1, AST 15, ALT 12, albumin 3.2. PT 9.7, PTT 25 Radiology studies were reviewed and remarkable for a chest x-ray that shows slight increase in parenchymal irregular opacity in the upper and left lung since July. Recommend further evaluation with a noncontrast chest CT. Stable pleural thickening and parenchymal opacity on the right. The patient was given Rocephin 1 g IV, Zithromax [address] scan of the chest was ordered. The patient's case was checked out to the oncoming emergency physician to disposition the patient based on the conclusion of his workup. Diagnosis Primary Impression: Shortness of breath Angelina Zaragoza MD November 30, 2017 06:14
--- NOTE | 2017-11-30 06:18 | RADRPT ---
EXAM DATE/TIME: 11/30/2017 06:06 [facility] COMPARISON: CHEST SINGLE AP, August 18, 2017, 5:59. INDICATIONS : Shortness of breath. MEDICAL HISTORY : Chronic obstructive pulmonary disease. Carcinoma, lung. Hypertension. SURGICAL HISTORY : None. ENCOUNTER: Initial ACUITY: 1 day PAIN SCORE: 0/10 LOCATION: Bilateral chest FINDINGS: There is bilateral apical pleural thickening. Parenchymal opacity upper left chest slightly increased from the prior exam. Right upper lobe scarring is stable. Lung bases are clear. No effusion. Heart s ize normal. Bones intact. CONCLUSION: 1. Slight increase in parenchymal irregular opacity in the upper left lung since July. Recommend f urther evaluation with noncontrast chest CT. Stable pleural thickening and parenchymal opacity on the right. Maco Tobar MD on November 30, 2017 at 6:13 Board Certified Radiologist. This report was verified electronically.
[2017-11-30 06:22] LABS: AUTOMATED NEUTROPHIL # 3.7 TH/MM3 (1.8-7.7); BASOPHIL % 0.8 % (0.0-2.0); EOSINOPHIL # 0.1 TH/MM3 (0-0.4); EOSINOPHIL % 1.8 % (0.0-4.0); HEMATOCRIT 34.9 % (39.0-51.0); HEMOGLOBIN 11.7 GM/DL (13.0-17.0); LYMPHOCYTE # 1.4 TH/MM3 (1.0-4.8); MEAN CELL VOLUME 93.5 FL (80.0-100.0); MEAN CORPUSCULAR HEMOGLOBIN 31.5 PG (27.0-34.0); MEAN CORPUSCULAR HGB CONC 33.7 % (32.0-36.0); MEAN PLATELET VOLUME 7.7 FL (7.0-11.0); MONO % 6.9 % (0.0-8.0); MONOCYTE # 0.4 TH/MM3 (0-0.9); NEUT % 65.5 % (16.0-70.0); PLATELET COUNT 157 TH/MM3 (150-450); RED BLOOD COUNT 3.73 MIL/MM3 (4.50-5.90); RED CELL DISTRIBUTION WIDTH 14.8 % (11.6-17.2); WHITE BLOOD COUNT 5.7 TH/MM3 (4.0-11.0)
[2017-11-30 06:29] LABS: PROTHROMBIN TIME - PATIENT 9.7 SEC (9.8-11.6)
[2017-11-30 06:45] LABS: ALBUMIN 3.2 GM/DL (3.4-5.0); ALT (GPT) 12 U/L (12-78); AST (GOT) 15 U/L (15-37); BICARBONATE 21.3 MEQ/L (21.0-32.0); BLOOD UREA NITROGEN 33 MG/DL (7-18); CALCIUM 8.1 MG/DL (8.5-10.1); CHLORIDE 117 MEQ/L (98-107); GLOMERULAR FILTRATION RATE 21 ML/MIN (>89); GLUCOSE,RANDOM 94 MG/DL (74-106); MAGNESIUM 2.3 MG/DL (1.5-2.5); SODIUM (NA) 145 MEQ/L (136-145)
[2017-11-30 06:50] LABS: ALKALINE PHOSPHATASE 78 U/L (45-117); TOTAL BILIRUBIN ADULT 0.2 MG/DL (0.2-1.0); TOTAL PROTEIN 7.4 GM/DL (6.4-8.2); TROPONIN I 0.03 NG/ML (0.02-0.05)
[2017-11-30] MEDS ORDERED: AZITHROMYCIN INJ 500 MG in SODIUM CHLOR 0.9% 250 ML INJ 250 ML IV ONE (07:00)
[2017-11-30] MEDS ORDERED: cefTRIAXone INJ 1,000 MG in SODIUM CHLORIDE 0.9% INJ 100 ML IV ONE (07:00)
[2017-11-30 07:14] VITALS: BP 148/69; PULSE 87; RESP 18; O2SAT 100
--- NOTE | 2017-11-30 07:14 | RADRPT ---
EXAM DATE/TIME: 11/30/2017 06:53 [facility] COMPARISON: CT NEEDLE BIOPSY LUNG, RIGHT, February 18, 2017, 9:22. CHEST SINGLE AP, November 30, 2017, 6:06. CT THORAX W/O CONTRAST, August 11, 2016, 10:14. INDICATIONS : Cough and congestion for 3 days RADIATION DOSE: 5.03 CTDIvol (mGy) MEDICAL HISTORY : Chronic obstructive pulmonary disease. Carcinoma, lung. Renal failure, chronic. SURGICAL HISTORY : None. ENCOUNTER: Initial ACUITY: 3 days PAIN SCALE: 0/10 LOCATION: chest TECHNIQUE: Volumetric scanning of the chest was performed. Using automated exposure control and adjustment of t he mA and/or kV according to patient size, radiation dose was kept as low as reasonably achievable to obtain optimal diagnostic quality images. DICOM format image data is available electronically for r eview and comparison. Follow-up recommendations for detected pulmonary nodules are based at a minimum on nodule size and pa tient risk factors according to Fleischner Society Guidelines. FINDINGS: LUNGS: There continues to be prominent bullous emphysema in both upper lung tran. There is stable scarring in the right apex with some focal areas of parenchymal consolidation. These areas were present on e prior study without significant change. There is stable parenchymal and pleural scarring in the per ipheral left upper lung. The previously noted infiltrate in the anterior left upper lung has essentia lly resolved compared to the prior exam. The lung bases are clear bilaterally. PLEURAE: There is no pleural thickening or pleural effusion. MEDIASTINUM: The heart and great vessels demonstrate no acute abnormality. There is no mediastinal or hilar lymph adenopathy. AXILLAE: Within normal limits. No lymphadenopathy. MUSCULOSKELETAL: Within normal limits for patient age. MISCELLANEOUS: History of polycystic kidney disease. No significant change compared to the prior study. CONCLUSION: 1. The previously noted parenchymal infiltrate in the anterior left upper lung on the prior study has resolved. 2. There is stable pleural-parenchymal scarring in both upper lung tran. 3. There is prominent bullous emphysema in both upper lung tran. 4. No acute intrathoracic disease. Wilson Ferrera MD on November 30, 2017 at 7:02 Board Certified Radiologist. This report was verified electronically.
--- NOTE | 2017-11-30 07:45 | PD ---
Physical Exam Narrative Received signout from Dr. Zaragoza to reassess patient check CT chest. Upon my reassessment patient reports that he feels much better now and states that he is ready to go home. Lungs are CTA bilaterally. He is satting 99% on room air. CT results:. FINDINGS: LUNGS: There continues to be prominent bullous emphysema in both upper lung tran. There is stable scarring in the right apex with some focal areas of parenchymal consolidation. These areas were present on the prior study without significant change. There is stable parenchymal and pleural scarring in the peripheral left upper lung. The previously noted infiltrate in the anterior left upper lung has essentially resolved compared to the prior exam. The lung bases are clear bilaterally. PLEURAE: There is no pleural thickening or pleural effusion. MEDIASTINUM: The heart and great vessels demonstrate no acute abnormality. There is no mediastinal or hilar lymphadenopathy. AXILLAE: Within normal limits. No lymphadenopathy. MUSCULOSKELETAL: Within normal limits for patient age. MISCELLANEOUS: History of polycystic kidney disease. No significant change compared to the prior study. CONCLUSION: 1. The previously noted parenchymal infiltrate in the anterior left upper lung on the prior study has resolved. 2. There is stable pleural-parenchymal scarring in both upper lung tran. 3. There is prominent bullous emphysema in both upper lung tran. 4. No acute intrathoracic disease. [id number]: Spoke to Dr. Brown, the patient's imaging account manager. OK with patient going home with prednisone 40mg QD and levaquin 750mgpo QD both for 5 days. Advised to have patient call office to schedule an appointment this week. Data Data Last Documented VS Vital Signs Date Time Temp Pulse Resp B/P (MAP) Pulse Ox O2 Delivery O2 Flow Rate FiO2 11/30/17 07:14 87 18 148/69 (95) 100 Room Air 11/30/17 05:36 97.7 Orders Orders Complete Blood Count With Diff (11/30/17 05:53) Comprehensive Metabolic Panel (11/30/17 05:53) B-Type Natriuretic Peptide (11/30/17 05:53) Act Partial Throm Time (Ptt) (11/30/17 05:53) Prothrombin Time / Inr (Pt) (11/30/17 05:53) Magnesium (Mg) (11/30/17 05:53) Ckmb (Isoenzyme) Profile (11/30/17 05:53) Troponin I (11/30/17 05:53) Blood Culture (11/30/17 05:53) Iv Access Insert/Monitor (11/30/17 05:53) Electrocardiogram (11/30/17 05:53) Ecg Monitoring (11/30/17 05:53) Oximetry (11/30/17 05:53) Oxygen Administration (11/30/17 05:53) Chest, Single Ap (11/30/17 05:53) Sodium Chloride 0.9% Flush (Ns Flush) (11/30/17 06:00) Methylprednisolone So Succ Inj (Solumedr (11/30/17 06:00) Albuterol-Ipratropium Neb (Duoneb Neb) (11/30/17 06:00) Ct Thorax/ Chest Wo Iv Contras (11/30/17 06:45) CKMB (11/30/17 05:55) CKMB% (11/30/17 05:55) Ceftriaxone Inj (Rocephin Inj) (11/30/17 07:00) Azithromycin Inj (Zithromax Inj) (11/30/17 07:00) Labs Laboratory Tests Test 11/30/17 05:55 White Blood Count 5.7 TH/MM3 Red Blood Count 3.73 MIL/MM3 Hemoglobin 11.7 GM/DL Hematocrit 34.9 % Mean Corpuscular Volume 93.5 FL Mean Corpuscular Hemoglobin 31.5 PG Mean Corpuscular Hemoglobin Concent 33.7 % Red Cell Distribution Width 14.8 % Platelet Count 157 TH/MM3 Mean Platelet Volume 7.7 FL Neutrophils (%) (Auto) 65.5 % Lymphocytes (%) (Auto) 25.0 % Monocytes (%) (Auto) 6.9 % Eosinophils (%) (Auto) 1.8 % Basophils (%) (Auto) 0.8 % Neutrophils # (Auto) 3.7 TH/MM3 Lymphocytes # (Auto) 1.4 TH/MM3 Monocytes # (Auto) 0.4 TH/MM3 Eosinophils # (Auto) 0.1 TH/MM3 Basophils # (Auto) 0.0 TH/MM3 CBC Comment DIFF FINAL Differential Comment Prothrombin Time 9.7 SEC Prothromb Time International Ratio 1.0 RATIO Activated Partial Thromboplast Time 25.0 SEC Blood Urea Nitrogen 33 MG/DL Creatinine 3.60 MG/DL Random Glucose 94 MG/DL Total Protein 7.4 GM/DL Albumin 3.2 GM/DL Calcium Level 8.1 MG/DL Magnesium Level 2.3 MG/DL Alkaline Phosphatase 78 U/L Aspartate Amino Transf (AST/SGOT) 15 U/L Alanine Aminotransferase (ALT/SGPT) 12 U/L Total Bilirubin 0.2 MG/DL Sodium Level 145 MEQ/L Potassium Level 4.9 MEQ/L Chloride Level 117 MEQ/L Carbon Dioxide Level 21.3 MEQ/L Anion Gap 7 MEQ/L Estimat Glomerular Filtration Rate 21 ML/MIN Total Creatine Kinase 152 U/L Creatine Kinase MB 2.0 NG/ML Troponin I 0.03 NG/ML B-Type Natriuretic Peptide 61 PG/ML MDM Supervised Visit with CITLALLI: No Physician Communication Physician Communication Dr Brown: Have patient call for followup this week. Ok to d/c with levaquin 750mg po and prednisone 40mg po QD x 5 days. Diagnosis Primary Impression: Shortness of breath Patient Instructions: General Instructions Additional Instruction: 1. Call Dr. Brown's office for appointment this week. 2. Return to the emergency department immediately for fever, vomiting, chest pain, shortness of breath, or for any new/worrisome/worsening symptoms. Med/Other Pt SpecificInfo: Prescription(s) given Scripts Levofloxacin (Levaquin) 750 Mg Tablet 750 MG PO DAILY for Infection for 5 Days, #5 TAB 0 Refills Prov: Barbara Cuevas MD 11/30/17 Prednisone (Prednisone) 20 Mg Tab 40 MG PO DAILY for 5 Days, #10 TAB 0 Refills Take 40 mg (2 tablets) daily for 5 days Prov: Barbara Cuevas MD 11/30/17 Disposition: 01 DISCHARGE HOME Condition: Stable Barbara Cuevas MD November 30, 2017 07:45
[2017-11-30] MEDS ORDERED: LEVA750T9 PO (07:55)
[2017-11-30] MEDS ORDERED: PRED20 PO (07:55)
--- NOTE | 2017-11-30 18:41 | EKG ---
Date Performed: 11/30/2017 Time Performed: 06:18:56 PTAGE: 57 years EKG: Sinus rhythm WITH OCCASIONAL VENTRICULAR PREMATURE COMPLEXES MARKED LEFT AXIS DEVIATION POSSIBLE LEFT VENTRICULAR HYPERTROPHY POSSIBLE SEPTAL MYOCARDIAL INFARCTION MODERATE T-WAVE ABNORMALITY, CONSIDER INFERIOR ISC HEMIA ABNORMAL ECG Since the PREVIOUS TRACING , no significant change noted PREVIOUS TRACIN08/18/2017 05.49 DOCTOR: Eliel Milian Interpretating Date/Time 11/30/2017 18:40:47
== END 2017-11-30 09:04 | disposition home or self-care (01) ==
LOC: NEPE 05:34
DX: C34.90 Malignant neoplasm of unspecified part of unspecified bronchus or lung (principal); R06.02 Shortness of breath; J43.9 Emphysema, unspecified; F17.290 Nicotine dependence, other tobacco product, uncomplicated; I12.9 Hypertensive chronic kidney disease with stage 1 through stage 4 chronic kidney disease, or unspecified chronic kidney disease; N18.9 Chronic kidney disease, unspecified
CPT/HCPCS: 71045; 71250; 80053; 82550; 82552; 83735; 83880; 84484; 85025; 85610; 85730; 87040; 87205; 93005; 94640; 94664; 96374; 96375; 99285; J0456; J0696; J2930; J7050

== ENCOUNTER 2018-07-06 02:34 | Observation (INO) ==
[2018-07-06 02:54] VITALS: TEMP 98
[2018-07-06 03:41] LABS: Baso % (Auto) 0.5 % (0.0-2.0); Eos # (Auto) 0.1 th/mm3 (0.0-0.4); Hematocrit 30.3 % (39.0-51.0); Hemoglobin 10.3 gm/dL (13.0-17.0); Lymph # (Auto) 1.5 th/mm3 (1.0-4.8); Lymph % (Auto) 31.6 % (9.0-44.0); Mean Corpuscular Hemoglobin 32.4 pg (27.0-34.0); Mean Corpuscular Volume 95.3 fL (80.0-100.0); Mean Platelet Volume 7.9 fL (7.0-11.0); Mono # (Auto) 0.4 th/mm3 (0.0-0.9); Mono % (Auto) 7.5 % (0.0-8.0); Neut # (Auto) 2.9 th/mm3 (1.8-7.7); Neut % (Auto) 58.4 % (16.0-70.0); Platelet Count 138 th/mm3 (150-450); Red Blood Count 3.18 mil/mm3 (4.50-5.90); Red Cell Distribution Width 13.6 % (11.6-17.2); White Blood Count 4.9 th/mm3 (4.0-11.0)
--- NOTE | 2018-07-06 03:43 | XR ---
EXAM DATE: 07/06/2018 3:36 AM EST AGE/SEX: 58 years / Male INDICATIONS: Chest pain, short of breath. CLINICAL DATA: This is the patient's initial encounter. Patient reports that signs and symptoms have been present for 1 day and indicates a pain score of 5/10. MEDICAL/SURGICAL HISTORY: Carcinoma, lung. Chronic obstructive pulmonary disease. Hypertension . Polycystic kidney disease. None. COMPARISON: [facility], CHEST SINGLE AP, 11/30/2017. [facility], CT CHEST W/O CONTRAST, 11/02/2017. [facility], CT CH EST W/O CONTRAST, 06/29/2018. . FINDINGS: Frontal view of the chest demonstrates the lungs to be hyperaerated. Stable appearance to pleural par enchymal scarring in the upper lobes easily evaluated with CT. No evidence of pneumothorax. The heart is normal in size. Both hemidiaphragms well delineated. CONCLUSION: No acute findings. Stable hyperaerated lungs and bilateral upper lung pleural parenchymal scarring. Electronically signed by: Adelfo Abrams MD Board Certified Radiologist 07/06/2018 3:41 AM EST
[2018-07-06 03:51] LABS: Activated Partial Thrombo Time 26.6 sec (23.4-31.7)
[2018-07-06 03:52] LABS: D-Dimer 1.79 mg/L FEU (0.00-0.50)
[2018-07-06 03:58] LABS: Alanine Aminotransferase 10 U/L (12-78); Anion Gap 7 meq/L (5-15); Aspartate Aminotransferase 12 U/L (15-37); Blood Urea Nitrogen 48 mg/dL (7-18); Carbon Dioxide 25.5 meq/L (21.0-32.0); Chloride 113 meq/L (98-107); Glomerular Filtration Rate 18 mL/min (>89); Glucose,Random 90 mg/dL (74-106); Lipase 305 U/L (73-393); Magnesium 2.1 mg/dL (1.5-2.5); Potassium 4.6 meq/L (3.5-5.1); Sodium 145 meq/L (136-145)
[2018-07-06 04:02] LABS: Alkaline Phosphatase 52 U/L (45-117); Creatine Kinase 153 U/L (39-308); Total Protein 6.5 g/dL (6.4-8.2); Troponin I 0.06 ng/mL (0.02-0.05)
--- NOTE | 2018-07-06 04:02 | ED ---
HPI General Chief complaint: Respiratory Symptoms Stated complaint: poss reaction to meds Time Seen by Provider: 07/06/18 03:02 Source: patient Limitations: no limitations History of Present Illness HPI narrative: The patient is a 58 year old male who presents to the [facility] emergency department with a history of taking doxazosin 4 mg p.o. this evening for the first time for his hypertension. He reports that this was prescribed by his primary care physician, Dr. Santana. He reports that shortly after taking it he lie down to sleep and noticed that he felt short of breath. He reports that he does have a history of COPD and was unsure whether it was related to COPD or his new medication. He reports that he read the insert for the medication and it stated that dyspnea could be a side effect. The patient reports that he tried to use his rescue inhaler, however he then realized he was out of it. He then decided to come to the emergency department for evaluation and treatment. He reports that yesterday he had a cough that was more productive and consisted of yellow to green sputum. He reports that the cough again became dry today. He denies having any associated chest pressure or chest pain. He denies having any nausea, vomiting, or reports that he has been diagnosed with lung cancer, however his last scan showed no recurrence 6 months ago. The patient reports that he does continue to smoke, however he is down to only smoking 3 cigarettes/day. He denies having any lower extremity edema, calf pain, or erythema. He denies having any prior history of myocardial infarction, congestive heart failure, DVT, or PE. On review of systems otherwise, the patient denies having any known recent fevers, neck pain, abdominal pain, urinary symptoms, or neurologic symptoms. He denies having any tongue or throat swelling. He denies having any rash or generalized itching associated with this. Related Data Home Medications Medication Instructions Recorded Confirmed albuterol sulfate [Ventolin HFA] 2 puff INHALATION Q6H PRN 03/03/18 07/06/18 amlodipine [Norvasc] 10 mg PO DAILY 03/03/18 07/06/18 metoprolol tartrate 25 mg PO DAILY 03/03/18 07/06/18 fluticasone-vilanterol [Breo 1 inh INHALATION DAILY 07/06/18 07/06/18 Ellipta] oxycodone-acetaminophen [Percocet] 1 tab PO Q6H PRN 07/06/18 07/06/18 tizanidine 4 mg PO Q6-8H PRN 07/06/18 07/06/18 Allergies Allergy/AdvReac Type Severity Reaction Status Date / Time acetaminophen Allergy Severe Swelling Verified 03/03/18 07:40 diatrizoate meglumine Allergy Severe Swelling Verified 03/03/18 07:40 gadobenic acid Allergy Severe Swelling Verified 03/03/18 07:40 gadodiamide Allergy Severe Swelling Verified 03/03/18 07:40 gadoteridol Allergy Severe Swelling Verified 03/03/18 07:40 iodixanol Allergy Severe Swelling Verified 03/03/18 07:40 iohexol Allergy Severe Swelling Verified 03/03/18 07:40 lisinopril Allergy Severe TONGUE Verified 03/03/18 07:40 SWELLING propoxyphene Allergy Severe Swelling Verified 03/03/18 07:40 sulfamethoxazole Allergy Intermediate Rash Verified 03/03/18 07:40 trimethoprim Allergy Intermediate Swelling Verified 03/03/18 07:40 Review of Systems ROS: all other systems reviewed are negative PMFSH Medical History Medical History Asthma (Acute) COPD (chronic obstructive pulmonary disease) (Acute) Cancer of lung (Acute) HBP (high blood pressure) (Acute) No significant past surgical history (Acute) Smoker (Acute) Surgical History Surgical History No history of previous surgery (Acute) Social History Social History Substance History: No History of Abuse Second Hand Smoke Exposure: No Smoking Status: Light tobacco smoker Tobacco Type: Cigarettes How Often Do You Have a Drink Containing Alcohol: Monthly or less Immunization History Tetanus Immunization: >5 Years Exam Const General: cooperative, no acute distress and well developed Nutritional Appearance: well nourished Orientation: alert, awake and oriented x3 HENMT Head: normocephalic and atraumatic Nose: no nasal discharge and no epistaxis Mouth: moist mucous membranes Eyes Sclera: normal sclerae Pupils: PERRL Neck Neck: no meningeal signs, trachea midline and no JVD Resp Effort & Inspection: no use of accessory muscles Auscultation: no crackles, no rhonchi and wheezes (Soft expiratory wheezes noted posteriorly. No accessory muscle use. No tripoding, paroxysmal abdominal breathing, or conversational dyspnea) Cardio Rate: regular rate Rhythm: regular rhythm Heart Sounds: no murmurs GI Inspection: non-distended Palpation: soft, no hepatosplenomegaly, no guarding, not rigid and nontender Auscultation: normal bowel sounds Back/Spine/Pelvis Back: no CVA tenderness Skin General: dry skin (warm) Neuro General: alert, awake, oriented x3 and other (Grossly nonfocal) Speech: speech normal Motor: no movement abnormalities noted Extrem General: normal to inspection (2+ pulses in all 4 extremities.), no calf tenderness, no clubbing, no cyanosis and no edema Psych Mood: congruent mood Affect: normal affect Judgment: judgment good Course Initial Documented Vital Signs Temperature 97.5 F L 07/06/18 02:37 Pulse Rate 90 07/06/18 02:37 Respiratory Rate 18 07/06/18 02:37 Blood Pressure 187/77 H 07/06/18 02:37 Pulse Oximetry 100 07/06/18 02:37 Last Documented Vital Signs Temperature 98.0 F 07/06/18 02:49 Pulse Rate 66 07/06/18 06:19 Respiratory Rate 16 07/06/18 06:19 Blood Pressure 162/77 H 07/06/18 06:19 Pulse Oximetry 100 07/06/18 06:19 Medical Decision Making MDM Narrative Medical decision making narrative: During the course of the patient's emergency department visit, the patient's history, examination, and differential diagnosis were reviewed with the patient. The patient was placed on a maintenance and custodian supervisor with oximetry and frequent blood pressure monitoring. The patient had IV access obtained and blood work sent for analysis. A diagnostic evaluation was started regarding the patient's shortness of breath. The patient was initially provided a DuoNeb x1. Aspirin 324 mg p.o. x1, nitroglycerin 1 inch to the chest wall. The patient's diagnostic studies are remarkable for normal white blood cell count of 4.9, hemoglobin 10.3, platelets 138 with a normal differential. The patient has had thrombocytopenia in the past to a similar level, PT 10, PTT 26.6 , d-dimer is elevated at 1.79, a VQ scan was ordered due to the patient's renal insufficiency. The patient's chemistry reveals a chloride of 113, BUN 48, creatinine 4.17 which is increased from his prior level of creatinine at 3.6, calcium 8.0, AST 12, ALT 10, CPK is within normal limits, however troponin I is noted to be elevated at 0.06, BNP is also elevated at 266 concerning for the development of congestive heart failure, lipase 305. A chest x-ray shows no acute abnormality, stable hyper aerated lungs and bilateral upper lung pleural parenchymal scarring. The patient will be admitted to the hospital for continued evaluation and treatment given the patient's elevated troponin and shortness of breath. The patient's troponin will be monitored and trended for possible acute coronary syndrome. The patient's case including history, pertinent physical examination findings, and laboratory studies were discussed with Dr. Mckoy. It was agreed that the patient would be admitted to the hospitalist service. The patient's results were discussed with him. The patient reports that he cannot be admitted as he has to go take care of his dog. The patient was made aware that the symptoms could be related to a life-threatening heart condition, however he reports that he cannot stay as no one else can take care of his dog. AMA: The risks of leaving against medical advice without further evaluation treatment were discussed with the patient. These risks include cardiac dysfunction, cardiac dysrhythmia, possible heart attack, possible stroke or . The patient indicated understanding of these risks and appeared to have the capacity to make this decision. Medical Screen Exam Complete: Yes Emergency Medical Condition: Yes Differential Diagnosis Differential Diagnosis: Medication side effect, versus allergic reaction, versus COPD exacerbation, versus pneumonia, versus pneumothorax, versus congestive heart failure, versus acute coronary syndrome Medical Records Medical records reviewed: Yes I reviewed the patient's medical records. Lab Data Lab results reviewed: Yes I reviewed the patient's lab results. Result diagrams: 07/06/18 03:15 07/06/18 03:15 Lab Results 07/06/18 07/06/18 07/06/18 Range/Units 03:15 03:15 03:15 WBC 4.9 (4.0-11.0) th/mm3 RBC 3.18 L (4.50-5.90) mil/mm3 Hgb 10.3 L (13.0-17.0) gm/dL Hct 30.3 L (39.0-51.0) % MCV 95.3 (80.0-100.0) fL MCH 32.4 (27.0-34.0) pg MCHC 34.0 (32.0-36.0) % RDW 13.6 (11.6-17.2) % Plt Count 138 L (150-450) th/mm3 MPV 7.9 (7.0-11.0) fL Neut % (Auto) 58.4 (16.0-70.0) % Lymph % (Auto) 31.6 (9.0-44.0) % [place] % (Auto) 7.5 (0.0-8.0) % Eos % (Auto) 2.0 (0.0-4.0) % Baso % (Auto) 0.5 (0.0-2.0) % Neut # (Auto) 2.9 (1.8-7.7) th/mm3 Lymph # (Auto) 1.5 (1.0-4.8) th/mm3 [place] # (Auto) 0.4 (0.0-0.9) th/mm3 Eos # (Auto) 0.1 (0.0-0.4) th/mm3 Baso # (Auto) 0.0 (0.0-0.2) th/mm3 WBC Differential . Differential Comment Auto diff final PT 10.0 (9.8-11.6) sec INR 1.0 Ratio APTT 26.6 (23.4-31.7) sec D-Dimer Quant (PE/DVT) 1.79 H (0.00-0.50) mg/L FEU Sodium 145 (136-145) meq/L Potassium 4.6 (3.5-5.1) meq/L Chloride 113 H (98-107) meq/L Carbon Dioxide 25.5 (21.0-32.0) meq/L Anion Gap 7 (5-15) meq/L BUN 48 H (7-18) mg/dL Creatinine 4.17 H (0.60-1.30) mg/dL Estimated GFR 18 L (>89) mL/min Random Glucose 90 (74-106) mg/dL Calcium 8.0 L (8.5-10.1) mg/dL Magnesium 2.1 (1.5-2.5) mg/dL Total Bilirubin 0.2 (0.2-1.0) mg/dL AST 12 L (15-37) U/L ALT 10 L (12-78) U/L Alkaline Phosphatase 52 (45-117) U/L Total Creatine Kinase 153 (39-308) U/L CK-MB (CK-2) 2.3 (0.5-3.6) ng/mL Troponin I 0.06 H (0.02-0.05) ng/mL B-Natriuretic Peptide (0-100) pg/mL Total Protein 6.5 (6.4-8.2) g/dL Albumin 3.0 L (3.4-5.0) g/dL Lipase 305 (73-393) U/L 07/06/18 Range/Units 03:15 WBC (4.0-11.0) th/mm3 RBC (4.50-5.90) mil/mm3 Hgb (13.0-17.0) gm/dL Hct (39.0-51.0) % MCV (80.0-100.0) fL MCH (27.0-34.0) pg MCHC (32.0-36.0) % RDW (11.6-17.2) % Plt Count (150-450) th/mm3 MPV (7.0-11.0) fL Neut % (Auto) (16.0-70.0) % Lymph % (Auto) (9.0-44.0) % [place] % (Auto) (0.0-8.0) % Eos % (Auto) (0.0-4.0) % Baso % (Auto) (0.0-2.0) % Neut # (Auto) (1.8-7.7) th/mm3 Lymph # (Auto) (1.0-4.8) th/mm3 [place] # (Auto) (0.0-0.9) th/mm3 Eos # (Auto) (0.0-0.4) th/mm3 Baso # (Auto) (0.0-0.2) th/mm3 WBC Differential Differential Comment PT (9.8-11.6) sec INR Ratio APTT (23.4-31.7) sec D-Dimer Quant (PE/DVT) (0.00-0.50) mg/L FEU Sodium (136-145) meq/L Potassium (3.5-5.1) meq/L Chloride (98-107) meq/L Carbon Dioxide (21.0-32.0) meq/L Anion Gap (5-15) meq/L BUN (7-18) mg/dL Creatinine (0.60-1.30) mg/dL Estimated GFR (>89) mL/min Random Glucose (74-106) mg/dL Calcium (8.5-10.1) mg/dL Magnesium (1.5-2.5) mg/dL Total Bilirubin (0.2-1.0) mg/dL AST (15-37) U/L ALT (12-78) U/L Alkaline Phosphatase (45-117) U/L Total Creatine Kinase (39-308) U/L CK-MB (CK-2) (0.5-3.6) ng/mL Troponin I (0.02-0.05) ng/mL B-Natriuretic Peptide 266 H (0-100) pg/mL Total Protein (6.4-8.2) g/dL Albumin (3.4-5.0) g/dL Lipase (73-393) U/L Imaging Data Radiologist's impression: Chest X-Ray 07/06/18 03:03 CONCLUSION: No acute findings. Stable hyperaerated lungs and bilateral upper lung pleural parenchymal scarring. ECG Data Attestation: I personally reviewed and interpreted this ECG as follows: Interpretation: The patient had an EKG done on arrival. The patient's EKG reveals a sinus rhythm with occasional premature ventricular complexes, heart rate of 66, QRS duration is 119 ms, QTC [address] segment elevation. T waves are inverted in V6, aVL, lead I. Discharge Plan Discharge Disposition Patient Disposition: 07 Against Medical Advice Discharge Order Discharge Orders: AMA Discharge (Routine); Ordered 07/06/18 Ordered By: Angelina Zaragoza ED Use Only Admit Order (Routine); Ordered 07/06/18 Ordered By: Angelina Zaragoza Discharge Details Diagnosis: Shortness of breath, Elevated troponin Physicians Team ED Provider: Angelina Zaragoza Primary Care Provider: Primary Care Guillermoi,No Attending Provider: Nellie Almaguer Other Providers: Christie Soriano Status ED Status: Left Department Discharge Information Discharge Date/Time: 07/06/18 06:00
[2018-07-06 04:15] LABS: Creatine Kinase MB 2.3 ng/mL (0.5-3.6)
[2018-07-06] MEDS ORDERED: Bisacodyl 10 MG Supp RECTAL PRN (05:23)
[2018-07-06] MEDS ORDERED: Acetaminophen 325 MG Tablet PO PRN (05:23)
[2018-07-06 06:20] VITALS: BP 162/77; PULSE 66; RESP 16; O2SAT 100
[2018-07-06] MEDS ORDERED: Metoprolol Tartrate 25 MG Tablet PO SCH (09:00)
[2018-07-06] MEDS ORDERED: amLODIPine 10 MG Tablet PO SCH (09:00)
[2018-07-06] MEDS ORDERED: Senna/Docusate Sodium 8.6/50 MG Tablet PO SCH (09:00)
--- NOTE | 2018-07-06 16:51 | ECG ---
Date Performed: 07/06/2018 Time Performed: 02:51:47 PTAGE: 58 years EKG: Sinus rhythm WITH OCCASIONAL VENTRICULAR PREMATURE COMPLEXES MARKED LEFT AXIS DEVIATION LEFT VENTRICULAR HYPERTRO PHY AND ST-T CHANGE POSSIBLE SEPTAL MYOCARDIAL INFARCTION ABNORMAL ECG PREVIOUS TRACING : 11/30/2017 06.18 Since the previous tracing, no significant change noted DOCTOR: Eliel Milian Interpretating Date/Time 07/06/2018 16:50:11
== END 2018-07-06 06:47 | disposition left against medical advice (07) ==
LOC: NEDA 02:34 → NEPC 02:34 → NEDA 06:00
PROVIDERS: ADMIT Internal Medicine; ATTEND Internal Medicine